=== PATIENT | male | born 1990 | race Caucasian/White ===

== ENCOUNTER 2016-07-19 11:34 | Emergency (ER) | payer BC ==
[~2016-07-19] VITALS: Ht 177.8 cm; Wt 73.3 kg
[2016-07-19 11:43] VITALS: BP 133/89; PULSE 103; RESP 16; TEMP 98.7; O2SAT 99
[2016-07-19] MEDS ORDERED: SODIUM CHLOR 0.9% 1000 ML INJ 1,000 ML IV SCH (13:49)
--- NOTE | 2016-07-19 13:52 | PD ---
HPI Chief Complaint: Abdominal Pain Time Seen by Provider: 13:51 Travel History International Travel<30 days: No Contact w/Intl Traveler<30days: No Traveled to known affect area: No History of Present Illness HPI 25-year-old male presents to the emergency department for evaluation of abdominal pain and bilateral flank pain that started yesterday. Patient states that his primary care physician diagnosed him with sinusitis and bronchitis on July 14, 2016. He was given prescription for prednisone and clarithromycin. He states he started bilateral flank pain and abdominal pain yesterday. He states he has had chills, but no fevers. He reports nausea, but no vomiting. He denies any previous abdominal surgeries. He states he has had this problem before, but he was in [place] at the time is unsure what the problem was. Patient denies any history of nephrolithiasis. He denies any penile discharge or testicular pain or swelling. He reports no chronic medical problems. He takes no other medications. PFSH Past Medical History Hx Anticoagulant Therapy: Yes (asa 81mg) Social History Alcohol Use: No Tobacco Use: No Substance Use: No Allergies-Medications (Allergen,Severity, Reaction): Coded Allergies: No Known Allergies (Unverified , 07/19/16) Reported Meds & Prescriptions Reported Meds & Active Scripts Active Reported Clarithromycin 500 Mg Tab 500 Mg PO BID Clonazepam Odt (Clonazepam) 0.25 Mg Tab 0.25 Mg PO BID Diclofenac Sodium DR (Diclofenac Sodium) 75 Mg Tabdr 75 Mg PO BID Hyoscyamine (Hyoscyamine Sulfate) 0.125 Mg Tab 1-2 Tab PO Q4H PRN Prednisone (21) 5 mg tab Dose Pack (Prednisone) 5 Mg Dspk 5 Mg PO DIRECTED Review of Systems Except as stated in HPI: all other systems reviewed are Neg Physical Exam Narrative GENERAL: Well-developed well-nourished male patient, ambulatory. Afebrile. SKIN: Warm and dry. HEAD: Normocephalic. Atraumatic. EYES: No scleral icterus. No injection or drainage. NECK: Supple, trachea midline. No JVD or lymphadenopathy. CARDIOVASCULAR: Regular rate and rhythm without murmurs, gallops, or rubs. RESPIRATORY: Breath sounds equal bilaterally. No accessory muscle use. Lungs sounds clear to auscultation. GASTROINTESTINAL: Abdomen soft and nondistended. Patient has generalized tenderness to palpation, worse over left lower quadrant. MUSCULOSKELETAL: No cyanosis, or edema. BACK: Nontender without obvious deformity. Bilateral CVA tenderness, worse on the left. Data Data Last Documented VS Vital Signs Date Time Temp Pulse Resp B/P Pulse Ox O2 Delivery O2 Flow Rate FiO2 07/19/16 14:50 92 16 141/89 98 Room Air 07/19/16 11:43 98.7 Orders Complete Blood Count With Diff (07/19/16 13:49) Comprehensive Metabolic Panel (07/19/16 13:49) Lipase (07/19/16 13:49) Urinalysis - C+S If Indicated (07/19/16 13:49) Ct Abd/Pel W/O Iv Contrast (07/19/16 13:49) Iv Access Insert/Monitor (07/19/16 13:49) Ecg Monitoring (07/19/16 13:49) Oximetry (07/19/16 13:49) Ondansetron Inj (Zofran Inj) (07/19/16 14:00) Sodium Chlor 0.9% 1000 Ml Inj (Ns 1000 M (07/19/16 13:49) Sodium Chloride 0.9% Flush (Ns Flush) (07/19/16 14:00) Ketorolac Inj (Toradol Inj) (07/19/16 14:00) Labs Laboratory Tests Test 07/19/16 13:50 White Blood Count 6.9 TH/MM3 Red Blood Count 5.38 MIL/MM3 Hemoglobin 16.3 GM/DL Hematocrit 48.5 % Mean Corpuscular Volume 90.2 FL Mean Corpuscular Hemoglobin 30.2 PG Mean Corpuscular Hemoglobin 33.5 % Concent Red Cell Distribution Width 12.4 % Platelet Count 250 TH/MM3 Mean Platelet Volume 8.9 FL Neutrophils (%) (Auto) 58.8 % Lymphocytes (%) (Auto) 30.3 % Monocytes (%) (Auto) 8.8 % Eosinophils (%) (Auto) 1.3 % Basophils (%) (Auto) 0.8 % Neutrophils # (Auto) 4.0 TH/MM3 Lymphocytes # (Auto) 2.1 TH/MM3 Monocytes # (Auto) 0.6 TH/MM3 Eosinophils # (Auto) 0.1 TH/MM3 Basophils # (Auto) 0.1 TH/MM3 CBC Comment DIFF FINAL Differential Comment Urine Collection Type CLEAN CATCH Urine Color YELLOW Urine Turbidity CLEAR Urine pH 6.5 Urine Specific [place] 1.017 Urine Protein NEG mg/dL Urine Glucose (UA) NEG mg/dL Urine Ketones NEG mg/dL Urine Occult Blood NEG Urine Nitrite NEG Urine Bilirubin NEG Urine Leukocyte Esterase NEG Urine RBC 0-3 /hpf Microscopic Urinalysis Comment CULT NOT INDICATED Sodium Level 142 MEQ/L Potassium Level 3.6 MEQ/L Chloride Level 106 MEQ/L Carbon Dioxide Level 27.6 MEQ/L Anion Gap 8 MEQ/L Blood Urea Nitrogen 17 MG/DL Creatinine 1.00 MG/DL Estimat Glomerular Filtration 90 ML/MIN Rate Random Glucose 97 MG/DL Calcium Level 9.3 MG/DL Total Bilirubin 0.5 MG/DL Aspartate Amino Transf 26 U/L (AST/SGOT) Alanine Aminotransferase 44 U/L (ALT/SGPT) Alkaline Phosphatase 67 U/L Total Protein 8.3 GM/DL Albumin 4.4 GM/DL Lipase 141 U/L [facility] Medical Decision Making Medical Screen Exam Complete: Yes Emergency Medical Condition: Yes Medical Record Reviewed: Yes Interpretation(s) Last Impressions Abdomen/Pelvis CT 07/19/16 1349 Signed Impressions: Service Date/Time: Tuesday, July 19, 2016 14:16 - CONCLUSION: 1. No acute findings. Specifically no evidence for obstructive uropathy. Mild constipation. Papi Carpenter MD Differential Diagnosis Nephrolithiasis versus gastroenteritis versus diverticulitis Narrative Course 25-year-old male presents to the emergency department for evaluation of bilateral flank pain and abdominal pain that started yesterday. Patient does appear well on exam. CBC, CMP, lipase, UA are ordered and pending. CT of the abdomen/pelvis without contrast is ordered and pending. CBC is unremarkable. CMP is unremarkable. Lipase is 141. UA shows no evidence of infection. CT of the abdomen/pelvis shows no acute findings. Specifically no evidence for obstructive uropathy. Mild constipation. I discussed findings with the patient. He is instructed to follow-up with primary care physician. Patient states his bronchitis and sinusitis symptoms are better. I discussed with the antibiotic, clarithromycin, could be causing his GI upset. Patient is stable for discharge. The patient was discharged in stable condition with instructions, including return instructions and follow up instructions. Diagnosis Primary Impression: Abdominal pain Qualified Code: R10.84 - Generalized abdominal pain Referrals: Primary Care Physician 2 days Patient Instructions: Abdominal Pain (ED), General Instructions Additional Instructions: Follow-up with your primary care physician. Return to the emergency department for any acute worsening of symptoms. Med/Other Pt SpecificInfo: No Change to Meds Disposition: 01 DISCHARGE HOME Condition: Stable Lester Quirozakash HADDAD Jul 19, 2016 13:52
[2016-07-19] MEDS ORDERED: ONDANSETRON HCL 4 MG/2 ML VIAL IVP ONE (14:00)
[2016-07-19] MEDS ORDERED: KETOROLAC TROMETHAMINE 30 MG/ML (IVP) VIAL IVP ONE (14:00)
[2016-07-19] MEDS ORDERED: SODIUM CHLORIDE 0.9% FLUSH 5 ML FLUSH IVF PRN (14:00)
[2016-07-19 14:09] VITALS: RESP 16; O2SAT 99
[2016-07-19 14:10] VITALS: BP 141/89; PULSE 90; RESP 16; O2SAT 97
[2016-07-19 14:10] LABS: BASOPHIL # 0.1 TH/MM3 (0-0.2); BASOPHIL % 0.8 % (0.0-2.0); EOSINOPHIL # 0.1 TH/MM3 (0-0.4); EOSINOPHIL % 1.3 % (0.0-4.0); HEMATOCRIT 48.5 % (39.0-51.0); HEMO FLAGS DIFF FINAL; LYMPH % 30.3 % (9.0-44.0); LYMPHOCYTE # 2.1 TH/MM3 (1.0-4.8); MEAN CELL VOLUME 90.2 FL (80.0-100.0); MEAN CORPUSCULAR HEMOGLOBIN 30.2 PG (27.0-34.0); MEAN CORPUSCULAR HGB CONC 33.5 % (32.0-36.0); MONO % 8.8 % (0.0-8.0); NEUT % 58.8 % (16.0-70.0); PLATELET COUNT 250 TH/MM3 (150-450); RED BLOOD COUNT 5.38 MIL/MM3 (4.50-5.90); RED CELL DISTRIBUTION WIDTH 12.4 % (11.6-17.2); WHITE BLOOD COUNT 6.9 TH/MM3 (4.0-11.0)
[2016-07-19 14:11] LABS: BLOOD, URINE NEG (NEG); GLUCOSE,URINE NEG (NEG); KETONE, URINE NEG (NEG); NITRITE,URINE NEG (NEG); PH, URINE 6.5 (5.0-8.5)
[2016-07-19] MEDS ORDERED: CLON0.25 PO (14:16)
[2016-07-19] MEDS ORDERED: CLAR500T PO (14:16)
[2016-07-19] MEDS ORDERED: HYOS0.128 PO (14:16)
[2016-07-19] MEDS ORDERED: PRED5PAK PO (14:16)
[2016-07-19] MEDS ORDERED: DICL75TA PO (14:16)
[2016-07-19 14:17] LABS: METHOD OF COLLECTION CLEAN CATCH; URINE COLOR YELLOW (YELLW/STRAW)
[2016-07-19 14:18] LABS: COMMENT (UR) CULT NOT INDICATED; CULTURE IF INDICATED CULT NOT INDICATED; RBC, URINE 0-3 /hpf (0-3)
[2016-07-19 14:19] LABS: CHLORIDE 106 MEQ/L (98-107); POTASSIUM 3.6 MEQ/L (3.5-5.1); SODIUM (NA) 142 MEQ/L (136-145)
[2016-07-19 14:23] LABS: ANION GAP 8 MEQ/L (5-15); BICARBONATE 27.6 MEQ/L (21.0-32.0); BLOOD UREA NITROGEN 17 MG/DL (7-18)
[2016-07-19 14:26] LABS: ALT (GPT) 44 U/L (12-78); AST (GOT) 26 U/L (15-37); GLOMERULAR FILTRATION RATE 90 ML/MIN (>89)
[2016-07-19 14:28] LABS: TOTAL BILIRUBIN ADULT 0.5 MG/DL (0.2-1.0)
[2016-07-19 14:29] LABS: ALKALINE PHOSPHATASE 67 U/L (45-117)
[2016-07-19 14:50] VITALS: BP_SYST 136; BP_SYST 141; BP_DIAS 88; BP_DIAS 89; PULSE 92; RESP 16; O2SAT 98
--- NOTE | 2016-07-19 15:12 | RADHPO ---
EXAM DATE/TIME: 07/19/2016 14:16 [facility] COMPARISON: No previous studies available for comparison. INDICATIONS : Bilateral flank pain for two days. ORAL CONTRAST: No oral contrast ingested. RADIATION DOSE: 8.72 CTDIvol (mGy) MEDICAL HISTORY : None SURGICAL HISTORY : None. ENCOUNTER: Initial ACUITY: 2 days PAIN SCALE: 6/10 LOCATION: Bilateral flank TECHNIQUE: Volumetric scanning of the abdomen and pelvis was performed. Using automated exposure control and ad justment of the mA and/or kV according to patient size, radiation dose was kept as low as reasonably achievable to obtain optimal diagnostic quality images. FINDINGS: Lung bases are clear. No acute findings in the liver, spleen, adrenals, kidneys or pancreas. No calci fied gallstones or biliary ductal dilatation. Appendix is normal. Mild constipation. No bowel obstruc tion, free air or free fluid. CONCLUSION: 1. No acute findings. Specifically no evidence for obstructive uropathy. Mild constipation. Papi Carpenter MD on July 19, 2016 at 15:06 Board Certified Radiologist. This report was verified electronically.
[2016-07-19 15:52] VITALS: BP 138/80; PULSE 89; RESP 16; O2SAT 98
[2016-07-19 16:30] VITALS: RESP 16
== END 2016-07-19 16:37 | disposition home or self-care (01) ==
LOC: PHED 11:34
DX: R10.84 Generalized abdominal pain (principal)
CPT/HCPCS: 74176; 80053; 81001; 83690; 85025; 96361; 96374; 96375; 99284; J1885; J2405; J7030

== ENCOUNTER 2016-08-08 13:45 | Emergency (ER) | payer BC ==
[~2016-08-08] VITALS: Ht 177.8 cm; Wt 75.5 kg
[~2016-08-08 13:45] MED LIST: CLAR500T PO; CLON0.25 PO; DICL75TA PO; HYOS0.128 PO; PRED5PAK PO
[2016-08-08 13:48] VITALS: BP 132/96; PULSE 129; RESP 16; TEMP 97.6; O2SAT 93
[2016-08-08] MEDS ORDERED: SODIUM CHLOR 0.9% 1000 ML INJ 1,000 ML IV SCH (14:12)
[2016-08-08] MEDS ORDERED: SODIUM CHLORIDE 0.9% FLUSH 5 ML FLUSH IVF PRN (14:15)
--- NOTE | 2016-08-08 14:20 | PD ---
HPI Chief Complaint: General Weakness Time Seen by Provider: 14:11 Travel History International Travel<30 days: No Contact w/Intl Traveler<30days: No Traveled to known affect area: No History of Present Illness HPI 25-year-old male with history of generalized anxiety disorder for which he takes clonazepam, presents to the ER today fairly disoriented, he grabs his abdomen, states he was nauseous, and states he had a rash on his arm. His thoughts are fairly poorly organized. He states that he took his anxiety medication today. Modifying Factors: None Associated Signs & Symptoms: Altered mental status Risk Factors: Anxiety disorder, on benzodiazepine PFSH Past Medical History Hx Anticoagulant Therapy: No Cardiovascular Problems: No Chemotherapy: No Cerebrovascular Accident: No Diabetes: No Diminished Hearing: No Respiratory: No Social History Alcohol Use: No Tobacco Use: No Substance Use: No Allergies-Medications (Allergen,Severity, Reaction): Coded Allergies: No Known Allergies (Unverified , 08/08/16) Reported Meds & Prescriptions Reported Meds & Active Scripts Active Reported Clonazepam 1 Mg Tab 1 Mg PO DAILY Review of Systems ROS Limitations: Altered Mental Status Physical Exam Narrative GENERAL: Well-developed young white male patient who is in moderate distress, alert, awake, disoriented. SKIN: Warm and dry. HEAD: Atraumatic. Normocephalic. EYES: Pupils are large, equal and round. No scleral icterus. No injection or drainage. Notable for vertigo nystagmus pointing to the left. ENT: No nasal bleeding or discharge. Mucous membranes pink and moist. NECK: Trachea midline. No JVD. CARDIOVASCULAR: Regular rate and rhythm. No murmur appreciated. RESPIRATORY: No accessory muscle use. Clear to auscultation. Breath sounds equal bilaterally. GASTROINTESTINAL: Abdomen soft, non-tender, nondistended. Hepatic and splenic margins not palpable. MUSCULOSKELETAL: No obvious deformities. No clubbing. No cyanosis. No edema. NEUROLOGICAL: Awake and alert. No obvious cranial nerve deficits. Motor grossly within normal limits. Normal speech. PSYCHIATRIC: Appropriate mood and affect; insight and judgment normal. Data Data Last Documented VS Vital Signs Date Time Temp Pulse Resp B/P Pulse Ox O2 Delivery O2 Flow Rate FiO2 08/08/16 15:00 93 16 139/95 95 Room Air 08/08/16 13:48 97.6 Orders Electrocardiogram (08/08/16 14:12) Complete Blood Count With Diff (3/11/17 14:12) Comprehensive Metabolic Panel (08/08/16 14:12) Prothrombin Time / Inr (Pt) (08/08/16 14:12) Act Partial Throm Time (Ptt) (08/08/16 14:12) Ct Brain W/O Iv Contrast(Rout) (08/08/16 14:12) Blood Glucose (08/08/16 14:12) Ecg Monitoring (08/08/16 14:12) Iv Access Insert/Monitor (08/08/16 14:12) Cath For Specimen (08/08/16 14:12) Oximetry (08/08/16 14:12) Sodium Chloride 0.9% Flush (Ns Flush) (08/08/16 14:15) Sodium Chlor 0.9% 1000 Ml Inj (Ns 1000 M (08/08/16 14:12) Drug Screen, Random Urine (08/08/16 14:12) Alcohol (Ethanol) (08/08/16 14:12) Lipase (08/08/16 14:12) Labs Laboratory Tests Test 08/08/16 08/08/16 14:45 16:02 White Blood Count 6.9 TH/MM3 Red Blood Count 4.97 MIL/MM3 Hemoglobin 15.6 GM/DL Hematocrit 45.4 % Mean Corpuscular Volume 91.5 FL Mean Corpuscular Hemoglobin 31.3 PG Mean Corpuscular Hemoglobin 34.3 % Concent Red Cell Distribution Width 13.6 % Platelet Count 222 TH/MM3 Mean Platelet Volume 9.2 FL Neutrophils (%) (Auto) 68.0 % Lymphocytes (%) (Auto) 22.4 % Monocytes (%) (Auto) 8.1 % Eosinophils (%) (Auto) 1.3 % Basophils (%) (Auto) 0.2 % Neutrophils # (Auto) 4.7 TH/MM3 Lymphocytes # (Auto) 1.5 TH/MM3 Monocytes # (Auto) 0.6 TH/MM3 Eosinophils # (Auto) 0.1 TH/MM3 Basophils # (Auto) 0.0 TH/MM3 CBC Comment DIFF FINAL Differential Comment Prothrombin Time 10.6 SEC Prothromb Time International 1.0 RATIO Ratio Activated Partial 24.3 SEC Thromboplast Time Sodium Level 140 MEQ/L Potassium Level 3.6 MEQ/L Chloride Level 103 MEQ/L Carbon Dioxide Level 29.7 MEQ/L Anion Gap 7 MEQ/L Blood Urea Nitrogen 8 MG/DL Creatinine 0.94 MG/DL Estimat Glomerular Filtration 96 ML/MIN Rate Random Glucose 89 MG/DL Calcium Level 9.1 MG/DL Total Bilirubin 0.5 MG/DL Aspartate Amino Transf 35 U/L (AST/SGOT) Alanine Aminotransferase 53 U/L (ALT/SGPT) Alkaline Phosphatase 56 U/L Total Protein 7.9 GM/DL Albumin 4.6 GM/DL Lipase 114 U/L Ethyl Alcohol Level LESS THAN 3 MG/DL Urine Opiates Screen NEG Urine Barbiturates Screen NEG Urine Amphetamines Screen NEG Urine Benzodiazepines Screen NEG Urine Cocaine Screen NEG Urine Cannabinoids Screen NEG MDM Medical Decision Making Medical Screen Exam Complete: Yes Emergency Medical Condition: Yes Medical Record Reviewed: Yes Interpretation(s) Laboratory Tests Test 08/08/16 14:45 Monocytes (%) (Auto) 8.1 % (0.0-8.0) Differential Diagnosis Altered mental statussubstance induced versus acute intracranial issues versus metabolic issues versus intoxicants Narrative Course CT of the brain is unremarkable. Lab work did not indicate any significant metabolic issues. His urine toxicology screen is negative. Patient admits to having taken his clonazepam today. I suspect that the symptoms are secondary to the medication. On reevaluation at 4:30 PM, patient is improving but still mildly disoriented. At this point, my plan would be to let him sleep it off. And to release once medication has worked his way out of his system. Return for any worsening in symptoms as necessary. On reevaluation at 5:30 PM, he is awake, alert, oriented 3, now able to speak normally, and appears to be doing better. My plan at this point would be to release him with follow-up to primary care physician. He states he is not sure what happened, states that he is not sure whether he took more than his usual dose of medications. Diagnosis Primary Impression: Altered mental status Disposition: 01 DISCHARGE HOME Condition: Stable Scot Rice MD Aug 08, 2016 14:20
[2016-08-08 14:30] VITALS: RESP 16; O2SAT 98
[2016-08-08] MEDS ORDERED: CLON1TAB OTHER (14:58)
[2016-08-08 15:00] VITALS: BP 139/95; PULSE 93; RESP 16; O2SAT 95
[2016-08-08 15:28] LABS: AUTOMATED NEUTROPHIL # 4.7 TH/MM3 (1.8-7.7); BASOPHIL % 0.2 % (0.0-2.0); EOSINOPHIL # 0.1 TH/MM3 (0-0.4); EOSINOPHIL % 1.3 % (0.0-4.0); HEMATOCRIT 45.4 % (39.0-51.0); HEMO FLAGS DIFF FINAL; LYMPH % 22.4 % (9.0-44.0); LYMPHOCYTE # 1.5 TH/MM3 (1.0-4.8); MEAN CELL VOLUME 91.5 FL (80.0-100.0); MEAN CORPUSCULAR HEMOGLOBIN 31.3 PG (27.0-34.0); MEAN CORPUSCULAR HGB CONC 34.3 % (32.0-36.0); MONO % 8.1 % (0.0-8.0); PLATELET COUNT 222 TH/MM3 (150-450); RED BLOOD COUNT 4.97 MIL/MM3 (4.50-5.90); RED CELL DISTRIBUTION WIDTH 13.6 % (11.6-17.2); WHITE BLOOD COUNT 6.9 TH/MM3 (4.0-11.0)
[2016-08-08 15:38] LABS: APTT (PATIENT) 24.3 SEC (24.3-30.1); PROTHROMBIN TIME - PATIENT 10.6 SEC (9.8-11.6)
--- NOTE | 2016-08-08 15:46 | RADRPT ---
EXAM DATE/TIME: 08/08/2016 15:31 [facility] COMPARISON: No previous studies available for comparison. INDICATIONS : Disoriented today. RADIATION DOSE: 56.36 CTDIvol (mGy) MEDICAL HISTORY : None SURGICAL HISTORY : None. ENCOUNTER: Initial ACUITY: 1 day PAIN SCALE: 0/10 LOCATION: cranial TECHNIQUE: Multiple contiguous axial images were obtained of the head. Using automated exposure control and adj ustment of the mA and/or kV according to patient size, radiation dose was kept as low as reasonably a chievable to obtain optimal diagnostic quality images. FINDINGS: CEREBRUM: The ventricles are normal for age. No evidence of midline shift, mass lesion, hemorrhage or acute in farction. No extra-axial fluid collections are seen. POSTERIOR FOSSA: The cerebellum and brainstem are intact. The 4th ventricle is midline. The cerebellopontine angle i s unremarkable. EXTRACRANIAL: The visualized portion of the orbits is intact. SKULL: The calvaria is intact. No evidence of skull fracture. CONCLUSION: Negative noncontrast head CT. Scott Blood MD on August 08, 2016 at 15:44 Board Certified Radiologist. This report was verified electronically.
[2016-08-08 16:09] LABS: ALT (GPT) 53 U/L (12-78); ANION GAP 7 MEQ/L (5-15); AST (GOT) 35 U/L (15-37); BICARBONATE 29.7 MEQ/L (21.0-32.0); BLOOD UREA NITROGEN 8 MG/DL (7-18); CHLORIDE 103 MEQ/L (98-107); GLOMERULAR FILTRATION RATE 96 ML/MIN (>89); POTASSIUM 3.6 MEQ/L (3.5-5.1); SODIUM (NA) 140 MEQ/L (136-145)
[2016-08-08 16:11] LABS: ALKALINE PHOSPHATASE 56 U/L (45-117); TOTAL BILIRUBIN ADULT 0.5 MG/DL (0.2-1.0)
[2016-08-08 16:26] LABS: AMPHETAMINE, URINE NEG (NEG); BARBITURATES, URINE NEG (NEG); COCAINE, URINE NEG (NEG)
--- NOTE | 2016-08-10 07:15 | EKG ---
Date Performed: 08/08/2016 Time Performed: 15:24:20 PTAGE: 25 years EKG: Sinus rhythm WITH SINUS ARRHYTHMIA INCOMPLETE RIGHT BUNDLE BRANCH BLOCK BORDERLINE ECG NO PREVIOUS TRACING DOCTOR: Giacomo Cervantes Interpretating Date/Time 08/10/2016 07:13:48
== END 2016-08-08 19:09 | disposition home or self-care (01) ==
LOC: NEPC 13:45
DX: R41.82 Altered mental status, unspecified (principal); I49.8 Other specified cardiac arrhythmias; I45.10 Unspecified right bundle-branch block; R11.0 Nausea; R21 Rash and other nonspecific skin eruption
CPT/HCPCS: 70450; 80053; 80307; 83690; 85025; 85610; 85730; 93005; 96360; 96361; 99285; J7030; P9612

== ENCOUNTER 2016-08-09 13:36 | Observation (INO) | payer BC ==
[~2016-08-09] VITALS: Ht 172.7 cm; Wt 76.0 kg
[~2016-08-09 13:36] MED LIST changes: -CLAR500T PO; -CLON0.25 PO; +CLON1TAB OTHER; -DICL75TA PO; -HYOS0.128 PO; -PRED5PAK PO
[2016-08-09 13:43] VITALS: BP 164/90; PULSE 122; RESP 20; TEMP 99.2; O2SAT 99
[2016-08-09] MEDS ORDERED: SODIUM CHLOR 0.9% 1000 ML INJ 1,000 ML IV SCH (13:50)
--- NOTE | 2016-08-09 13:56 | PD ---
HPI Chief Complaint: Altered Mental Status Time Seen by Provider: 13:45 Travel History International Travel<30 days: No Contact w/Intl Traveler<30days: No Traveled to known affect area: No History of Present Illness HPI 25-year-old male presents via EMS for evaluation of altered mental status. He reports that someone named Greg gave him the drugs PCP and DMT [place] today and he took them. He has no acute complaints at this time. He says that Greg is going to alf. He is alert to place but he does not appear to know if his name is. History limited by altered mental status. Per chart review the patient was seen here yesterday with a similar presentation. He was monitored for several hours and upon discharge she was found to be awake and alert and oriented and acting more normal. Per chart review he appears to have a history of generalized anxiety disorder for which he takes clonazepam. PFSH Past Medical History Hx Anticoagulant Therapy: No Cardiovascular Problems: No Chemotherapy: No Cerebrovascular Accident: No Diabetes: No Diminished Hearing: No Respiratory: No Social History Alcohol Use: No Tobacco Use: No Substance Use: Yes Allergies-Medications (Allergen,Severity, Reaction): Coded Allergies: No Known Allergies (Unverified , 08/08/16) Reported Meds & Prescriptions Reported Meds & Active Scripts Active Reported Clonazepam 1 Mg Tab 1 Mg PO DAILY Review of Systems ROS Limitations: Altered Mental Status Except as stated in HPI: all other systems reviewed are Neg Physical Exam Exam Limitations: Altered Mental Status Narrative GENERAL: Well-developed well-nourished male who is in no acute distress. SKIN: Warm and dry. HEAD: Atraumatic. Normocephalic. EYES: Pupils equal and round. No scleral icterus. No injection or drainage. ENT: No nasal bleeding or discharge. Mucous membranes pink and moist. NECK: Trachea midline. No JVD. CARDIOVASCULAR: Regular rate and rhythm. No murmur appreciated. RESPIRATORY: No accessory muscle use. Clear to auscultation. Breath sounds equal bilaterally. GASTROINTESTINAL: Abdomen soft, non-tender, nondistended. Hepatic and splenic margins not palpable. MUSCULOSKELETAL: No obvious deformities. No clubbing. No cyanosis. No edema. NEUROLOGICAL: Awake and alert. No obvious cranial nerve deficits. Motor grossly within normal limits. Normal speech. He is alert to place but not his name. He thinks his name is Scott Tony. He responds to commands appropriately. PSYCHIATRIC: Insight and judgment are limited by ingested substance. Anxious appearance. Data Data Last Documented VS Vital Signs Date Time Temp Pulse Resp B/P Pulse Ox O2 Delivery O2 Flow Rate FiO2 08/09/16 13:43 99.2 122 20 164/90 99 Orders Electrocardiogram (08/09/16 13:47) Ammonia (08/09/16 13:50) Complete Blood Count With Diff (08/09/16 13:50) Comprehensive Metabolic Panel (08/09/16 13:50) Creatine Kinase (Cpk) (08/09/16 13:50) Iv Access Insert/Monitor (08/09/16 13:50) Sodium Chlor 0.9% 1000 Ml Inj (Ns 1000 M (08/09/16 13:50) Alcohol (Ethanol) (08/09/16 13:50) Salicylates (Aspirin) (08/09/16 13:50) Tylenol (Acetaminophen) (08/09/16 13:50) CKMB (08/09/16 14:01) CKMB% (08/09/16 14:01) Ob/Psych Drug Screen, Urine (08/09/16 14:49) Ur Bath Salts (08/09/16 15:14) Ur Heroin (08/09/16 15:14) Ur K2 Spice (08/09/16 15:14) Ur Ecstasy (08/09/16 15:14) Ur Methadone (08/09/16 15:14) Phencyclidine Urine (Pcp) (08/09/16 15:14) Lorazepam Inj (Ativan Inj) (08/09/16 18:17) ^ Sitter (08/09/16 18:38) Lorazepam Inj (Ativan Inj) (08/09/16 18:45) Restraints Non-Violent KATHERIN.Q3H (08/09/16 18:44) Labs Laboratory Tests Test 08/09/16 08/09/16 14:01 15:14 White Blood Count 5.6 TH/MM3 Red Blood Count 4.68 MIL/MM3 Hemoglobin 14.7 GM/DL Hematocrit 42.7 % Mean Corpuscular Volume 91.2 FL Mean Corpuscular Hemoglobin 31.4 PG Mean Corpuscular Hemoglobin 34.4 % Concent Red Cell Distribution Width 13.8 % Platelet Count 218 TH/MM3 Mean Platelet Volume 8.9 FL Neutrophils (%) (Auto) 54.0 % Lymphocytes (%) (Auto) 33.7 % Monocytes (%) (Auto) 9.4 % Eosinophils (%) (Auto) 2.7 % Basophils (%) (Auto) 0.2 % Neutrophils # (Auto) 3.0 TH/MM3 Lymphocytes # (Auto) 1.9 TH/MM3 Monocytes # (Auto) 0.5 TH/MM3 Eosinophils # (Auto) 0.1 TH/MM3 Basophils # (Auto) 0.0 TH/MM3 CBC Comment DIFF FINAL Differential Comment Sodium Level 142 MEQ/L Potassium Level 3.8 MEQ/L Chloride Level 107 MEQ/L Carbon Dioxide Level 26.3 MEQ/L Anion Gap 9 MEQ/L Blood Urea Nitrogen 14 MG/DL Creatinine 1.00 MG/DL Estimat Glomerular Filtration 90 ML/MIN Rate Random Glucose 87 MG/DL Calcium Level 8.3 MG/DL Total Bilirubin 0.4 MG/DL Aspartate Amino Transf 34 U/L (AST/SGOT) Alanine Aminotransferase 47 U/L (ALT/SGPT) Alkaline Phosphatase 52 U/L Ammonia 15 MCMOL/L Total Creatine Kinase 455 U/L Creatine Kinase MB 1.5 NG/ML Creatine Kinase MB % 0.3 % Total Protein 7.2 GM/DL Albumin 4.1 GM/DL Salicylates Level LESS THAN 1.7 MG/DL Acetaminophen Level LESS THAN 2.0 MCG/ML Ethyl Alcohol Level LESS THAN 3 MG/DL Urine Opiates Screen NEG Urine Barbiturates Screen NEG Urine Amphetamines Screen NEG Urine Benzodiazepines Screen NEG Urine Cocaine Screen NEG Urine Cannabinoids Screen NEG MDM Medical Decision Making Medical Screen Exam Complete: Yes Emergency Medical Condition: Yes Medical Record Reviewed: Yes Interpretation(s) EKG sinus tachycardia, heart rate 108 CBC unremarkable CMP unremarkable Total CK 455 Told toxicology screen pending Tylenol and salicylates negative A call screen negative Differential Diagnosis Substance-induced disorder, acute psychosis, meningitis, encephalitis, drug overdose, schizophrenia Narrative Course 25-year-old male presents for evaluation of altered mental status. He reports that he took the drugs dmt and pcp today. He was seen here yesterday with a similar presentation and had an essentially normal workup. He was monitored for several hours and eventually discharge in his normal state of mind. Place is for basic lab work, drug screen at this time. He'll be given IV fluids and monitored very closely. The patient's lab work is been repeated. Total CK elevated otherwise unremarkable. Total toxicology screen is pending. He reports that he works at [employer]. Today he was upset because a girl that he was speaking to on [place] is not interested in him and he decided to get high with drugs. He denies any suicidal or homicidal ideation. Patient has been monitored for several hours. He became increasingly agitated and required soft restraints as well as Ativan. Therefore the patient will be admitted for observation for altered mental status. Discussed with Dr. Garza who is agreeable with admission for observation. Procedures EKG Prior to Arrival: Yes Diagnosis Primary Impression: Substance induced mood disorder Additional Impression: Altered mental status Qualified Code: R41.82 - Altered mental status, unspecified altered mental status type Admitting Information Admitting Physician Requests: Observation Franck Roque Aug 09, 2016 13:56 Franck Roque Aug 09, 2016 13:56
[2016-08-09 14:15] LABS: BASOPHIL % 0.2 % (0.0-2.0); EOSINOPHIL # 0.1 TH/MM3 (0-0.4); EOSINOPHIL % 2.7 % (0.0-4.0); HEMATOCRIT 42.7 % (39.0-51.0); HEMO FLAGS DIFF FINAL; LYMPH % 33.7 % (9.0-44.0); LYMPHOCYTE # 1.9 TH/MM3 (1.0-4.8); MEAN CELL VOLUME 91.2 FL (80.0-100.0); MEAN CORPUSCULAR HEMOGLOBIN 31.4 PG (27.0-34.0); MEAN CORPUSCULAR HGB CONC 34.4 % (32.0-36.0); MONO % 9.4 % (0.0-8.0); PLATELET COUNT 218 TH/MM3 (150-450); RED BLOOD COUNT 4.68 MIL/MM3 (4.50-5.90); RED CELL DISTRIBUTION WIDTH 13.8 % (11.6-17.2); WHITE BLOOD COUNT 5.6 TH/MM3 (4.0-11.0)
[2016-08-09 14:30] LABS: ALT (GPT) 47 U/L (12-78); ANION GAP 9 MEQ/L (5-15); AST (GOT) 34 U/L (15-37); BICARBONATE 26.3 MEQ/L (21.0-32.0); BLOOD UREA NITROGEN 14 MG/DL (7-18); CHLORIDE 107 MEQ/L (98-107); GLOMERULAR FILTRATION RATE 90 ML/MIN (>89); POTASSIUM 3.8 MEQ/L (3.5-5.1); SODIUM (NA) 142 MEQ/L (136-145)
[2016-08-09 14:32] LABS: ACETAMINOPHEN LESS THAN 2.0 MCG/ML (10.0-30.0); ALKALINE PHOSPHATASE 52 U/L (45-117); CREATINE KINASE 455 U/L (39-308); TOTAL BILIRUBIN ADULT 0.4 MG/DL (0.2-1.0)
[2016-08-09 14:50] LABS: CKMB 1.5 NG/ML (0.5-3.6)
[2016-08-09 15:48] LABS: AMPHETAMINE, URINE NEG (NEG); BARBITURATES, URINE NEG (NEG); COCAINE, URINE NEG (NEG)
[2016-08-09] MEDS ORDERED: LORazepam 2 MG/ML VIAL ONE (18:17)
[2016-08-09] MEDS ORDERED: LORazepam 2 MG/ML VIAL IV PUSH ONE (18:45)
--- NOTE | 2016-08-09 19:39 | HHI.HP ---
[facility] Service [facility] Primary Care Physician Michael Nova MD Admission Diagnosis altered mental status, substance-induced disorder Diagnoses: (1) Substance induced mood disorder (2) Encephalopathy Chief Complaint: Altered mental status Travel History International Travel<30 Days: No Contact w/Intl Traveler <30 Da: No Traveled to Known Affected Are: No History of Present Illness Mr. Davila is a 25-year-old male who presented to the emergency room 08/09/2016 for evaluation of altered mental status. The patient is noncooperative with physical exam and history during my visit and, therefore, history is taken from review records. The patient told the emergency room physician's assistant women's tennis coach that he took PCP and DMT today. He has a history of generalized anxiety disorder and takes Klonopin according to the medical records. He presented on 08/08/2016 with similar complaints. Urine toxicology was negative. Head CT performed was also negative. Today, CBC is unremarkable as are electrolytes. CK was noted to be mildly elevated at 455. Expanded toxicology screen- thus far negative for opiates, barbiturates, amphetamines, benzodiazepines, cocaine, and cannabis. Blood alcohol less than 3, salicylates less than 1.7 and acetaminophen less than 2. . Review of Systems ROS Limitations: Uncooperative (unable to obtain ROS given patient's lack of cooperation) Past Family Social History Past Medical History Generalized anxiety disorder per review of medical records . Past Surgical History Unable to obtain but per medical records, none. . Reported Medications Per EMR: Reported Meds & Active Scripts Active Reported Clonazepam 1 Mg Tab 1 Mg PO DAILY . Allergies: Coded Allergies: No Known Allergies (Unverified , 08/08/16) Active Ordered Medications Current Medications Sodium Chloride (NS 1000 ml Inj) 1,000 ml @ 1,000 mls/hr Q1H IV Last administered on 08/09/16t 14:20; Start 08/09/16 at 13:50; Stop 08/09/16 at 14:49 ; Status DC Lorazepam (Ativan Inj) 2 mg STK-MED ONCE .ROUTE ; Start 08/09/16 at 18:17; Stop 08/09/16 at 18:18; Status DC Lorazepam (Ativan Inj) 1 mg ONCE ONCE IV PUSH Last administered on 08/09/16t 19:14; Start 08/09/16 at 18:45; Stop 08/09/16 at 18:46; Status DC IV Flush (NS Flush) 2 ml UNSCH PRN FLUSH FLUSH AFTER USING IV ACCESS; Start 05/16 at 19:45 IV Flush (NS Flush) 2 ml BID FLUSH ; Start 08/09/16 at 21:00 Acetaminophen (Tylenol) 650 mg Q4H PRN PO TEMP > 100.4; Start 08/09/16 at 19:45 Ondansetron HCl (Zofran Inj) 4 mg Q6H PRN IVP NAUSEA OR VOMITING; Start at 19:45 Naloxone HCl (Narcan Inj) 0.4 mg UNSCH PRN IV SEE LABEL COMMENTS; Start at 19:45 Family History Unable to obtain - patient uncooperative . Social History Unable to obtain but per medical records patient does abuse psychoactive substances . Physical Exam Vital Signs Vital Signs Date Time Temp Pulse Resp B/P Pulse Ox O2 Delivery O2 Flow Rate FiO2 08/09/16 13:43 99.2 122 20 164/90 99 Physical Exam GENERAL: This is a well-nourished, well-developed patient, in no apparent distress. Keeps eyes closed through most of visit. Initially greeted me when I came into the room. SKIN: No rashes, ecchymoses or lesions. Cool and dry. HEAD: Atraumatic. Normocephalic. EYES: Pupils dilated but reactive; Patient attempts to keep eyes for exam. No scleral icterus. No injection or drainage. ENT: Nose without bleeding, purulent drainage. NECK: Trachea midline. No JVD or lymphadenopathy. CARDIOVASCULAR: Regular rate and rhythm without murmurs, gallops, or rubs. RESPIRATORY: Clear to auscultation. Breath sounds equal bilaterally. No wheezes , rales, or rhonchi. GASTROINTESTINAL: Abdomen soft, non-tender, nondistended. No guarding. MUSCULOSKELETAL: Extremities without clubbing, cyanosis, or edema. No calf tenderness. NEUROLOGICAL: Awake initially, greets me, and then keeps eyes closed and does not answer any questions. Normal speech. . Laboratory Laboratory Tests Test 08/09/16 08/09/16 14:01 15:14 White Blood Count 5.6 Red Blood Count 4.68 Hemoglobin 14.7 Hematocrit 42.7 Mean Corpuscular Volume 91.2 Mean Corpuscular Hemoglobin 31.4 Mean Corpuscular Hemoglobin 34.4 Concent Red Cell Distribution Width 13.8 Platelet Count 218 Mean Platelet Volume 8.9 Neutrophils (%) (Auto) 54.0 Lymphocytes (%) (Auto) 33.7 Monocytes (%) (Auto) 9.4 Eosinophils (%) (Auto) 2.7 Basophils (%) (Auto) 0.2 Neutrophils # (Auto) 3.0 Lymphocytes # (Auto) 1.9 Monocytes # (Auto) 0.5 Eosinophils # (Auto) 0.1 Basophils # (Auto) 0.0 CBC Comment DIFF FINAL Differential Comment Sodium Level 142 Potassium Level 3.8 Chloride Level 107 Carbon Dioxide Level 26.3 Anion Gap 9 Blood Urea Nitrogen 14 Creatinine 1.00 Estimat Glomerular Filtration 90 Rate Random Glucose 87 Calcium Level 8.3 Total Bilirubin 0.4 Aspartate Amino Transf 34 (AST/SGOT) Alanine Aminotransferase 47 (ALT/SGPT) Alkaline Phosphatase 52 Ammonia 15 Total Creatine Kinase 455 Creatine Kinase MB 1.5 Creatine Kinase MB % 0.3 Total Protein 7.2 Albumin 4.1 Salicylates Level LESS THAN 1.7 Acetaminophen Level LESS THAN 2.0 Ethyl Alcohol Level LESS THAN 3 Urine Opiates Screen NEG Urine Barbiturates Screen NEG Urine Amphetamines Screen NEG Urine Benzodiazepines Screen NEG Urine Cocaine Screen NEG Urine Cannabinoids Screen NEG Result Diagram: 08/09/16 1401 08/09/16 1401 Assessment and Plan Problem List: (1) Substance induced mood disorder ICD Code: F19.94 Status: Acute (2) Encephalopathy ICD Code: G93.40 Status: Acute Assessment and Plan Encephalopathy - toxic vs metabolic Substance Induced Mood Disorder - Expanded toxicology screen- as far negative for opiates, barbiturates, amphetamines, benzodiazepines, cocaine, and cannabis- await results from full panel - Blood alcohol less than 3, salicylates less than 1.7 and acetaminophen less than 2. - IV fluid hydration with normal saline 125 cc per hour - Neuro checks every 4 hours - Seizure precautions - Vital signs every 4 hours - Continuous cardiac telemetry Elevated creatinine kinase - IV fluid hydration - Recheck levels in a.m.; follow trends DVT prophylaxis - SCDs Written by Ame Guzman, acting as scribe for Dr. Garza on 08/09/16 at 19: 39. All or portions of this note were transcribed by scribe BOO Romero. I, Dr. Blayne Garza personally performed the history, physical exam, and medical decision making; and confirmed the accuracy of the information in the transcribed note. Authenticated by Dr. Blayne Garza on 08/09/16 at 22:15. Discussed Condition With ER physician, RN . Ame Guzman Aug 09, 2016 19:39 Blayne Garza MD Aug 09, 2016 22:16
[2016-08-09] MEDS ORDERED: NALOXONE HCL 0.4 MG/ML AMP IV PRN (19:45)
[2016-08-09] MEDS ORDERED: ACETAMINOPHEN 325 MG TAB PO PRN (19:45)
[2016-08-09] MEDS ORDERED: SODIUM CHLORIDE 0.9% FLUSH 5 ML FLUSH FLUSH PRN (19:45)
[2016-08-09] MEDS ORDERED: ONDANSETRON HCL 4 MG/2 ML VIAL IVP PRN (19:45)
[2016-08-09 20:45] VITALS: BP 133/84; PULSE 86; RESP 15; O2SAT 96
[2016-08-09] MEDS: SODIUM CHLORIDE 0.9% FLUSH 5 ML FLUSH FLUSH SCH (21:00)
[2016-08-09] MEDS: SODIUM CHLOR 0.9% 1000 ML INJ 1,000 ML IV SCH (21:14)
[2016-08-10] VITALS (9 sets, daily range): BP systolic 121–146; BP diastolic 73–94; PULSE 70–142; RESP 15–21; TEMP 98–99; O2SAT 94–97
[2016-08-10] MEDS: SODIUM CHLOR 0.9% 1000 ML INJ 1,000 ML IV SCH ×3 (05:00→20:32)
[2016-08-10 05:39] LABS: BICARBONATE 24.6 MEQ/L (21.0-32.0); POTASSIUM 3.9 MEQ/L (3.5-5.1)
[2016-08-10] MEDS: SODIUM CHLORIDE 0.9% FLUSH 5 ML FLUSH FLUSH SCH ×2 (09:00→20:32)
--- NOTE | 2016-08-10 14:56 | EKG ---
Date Performed: 08/09/2016 Time Performed: 13:50:56 PTAGE: 25 years EKG: SINUS TACHYCARDIA WITH SHORT AR INTERVAL INCOMPLETE RIGHT BUNDLE BRANCH BLOCK ABNORMAL RHYT ECG Compared to prior tracing no significant change PREVIOUS TRACING : 08/08/2016 15.24 DOCTOR: Francisca Albrecht Interpretating Date/Time 08/10/2016 14:50:25
--- NOTE | 2016-08-10 15:41 | HHI.PR ---
Vitals/Results Vital Signs Vital Signs Date Time Temp Pulse Resp B/P Pulse Ox O2 Delivery O2 Flow Rate FiO2 08/10/16 15:06 95 08/10/16 13:04 95 21 08/10/16 11:21 99.0 103 20 137/81 95 08/10/16 07:43 98.5 88 20 146/80 94 08/10/16 04:32 98.4 98 18 121/73 97 08/10/16 03:15 70 08/10/16 00:45 83 15 138/78 96 Room Air 08/09/16 20:45 86 15 133/84 96 Room Air CBC/BMP: 08/09/16 1401 08/10/16 0445 Lab Results Laboratory Tests Test 08/10/16 04:45 Sodium Level 142 MEQ/L Potassium Level 3.9 MEQ/L Chloride Level 108 MEQ/L Carbon Dioxide Level 24.6 MEQ/L Anion Gap 9 MEQ/L Blood Urea Nitrogen 9 MG/DL Creatinine 0.98 MG/DL Estimat Glomerular Filtration 92 ML/MIN Rate Random Glucose 92 MG/DL Calcium Level 8.4 MG/DL Total Creatine Kinase 307 U/L Assessment/Plan Problem List: (1) Substance induced mood disorder (2) Encephalopathy Denis Fisher MD Aug 10, 2016 15:41
[2016-08-10] MEDS ORDERED: HALOPERIDOL LACTATE 5 MG/ML AMP IM PRN (15:45)
[2016-08-10] MEDS ORDERED: LORazepam 2 MG/ML VIAL IV PUSH PRN (15:45)
--- NOTE | 2016-08-10 15:45 | HHI.PR ---
Subjective Remarks Talking incoherently and randomly, change in altered mental status Tachycardic Skin warm Wrist restraints on No family present Objective Objective Results - Vital Signs Date Time Temp Pulse Resp B/P Pulse Ox O2 Delivery O2 Flow Rate FiO2 08/10/16 15:06 95 08/10/16 13:04 95 21 08/10/16 11:21 99.0 103 20 137/81 95 08/10/16 07:43 98.5 88 20 146/80 94 08/10/16 04:32 98.4 98 18 121/73 97 08/10/16 03:15 70 08/10/16 00:45 83 15 138/78 96 Room Air 08/09/16 20:45 86 15 133/84 96 Room Air Result Diagram: 08/09/16 1401 08/10/16 0445 Medications and IVs Active Medications Acetaminophen (Tylenol) 650 mg Q4H PRN PO; Start 08/09/16 at 19:45 IV Flush (NS Flush) 2 ml BID FLUSH; Start 08/09/16 at 21:00 IV Flush (NS Flush) 2 ml UNSCH PRN FLUSH; Start 08/09/16 at 19:45 Lorazepam (Ativan Inj) 1 mg ONCE ONCE IV PUSH Last administered on 08/09/16 19 :14; Admin Dose 1 MG; Start 08/09/16 at 18:45; Stop 08/09/16 at 18:46; Status DC Lorazepam (Ativan Inj) 2 mg STK-MED ONCE .ROUTE; Start 08/09/16 at 18:17; Stop 08/09/16 at 18:18; Status DC Naloxone HCl 0.4 mg 0.4 mg UNSCH PRN IV; Start 08/09/16 at 19:45 Ondansetron HCl (Zofran Inj) 4 mg Q6H PRN IVP; Start 08/09/16 at 19:45 Sodium Chloride (NS 1000 ml Inj) 1,000 ml @ 125 mls/hr Q8H IV Last administered on 08/10/16 13:35; Admin Dose 125 MLS/HR; Start 08/09/16 at 21:00 ROS General: Other (unable to obtain appropriate ROS due to altered mental status) Cardiac: Other (tachycardia sinus tach) Neuro/MS: Confusion, Other (delirium) Physical Exam Physical Exam PHYSICAL EXAMINATION GENERAL: This is a well-developed, well-nourished male in acute delirium. He is awake and soft wrist restraints on HEAD: Normocephalic without any lesion or mass noted. Facial features appear symmetric. OROPHARYNGEAL: Oropharynx without erythema or edema. NECK: Supple. No nuchal rigidity or lymphadenopathy. Trachea midline without deviation. CARDIAC: Regular rhythm, regular rate, tachycardia LUNGS: Clear to auscultation bilaterally. No wheeze, tachypnea and mild ABDOMEN: Soft, nontender EXTREMITIES: No edema. Pulses equal bilateral. NEUROLOGICAL: Talking randomly about whatever comes in his mind. Delirium SKIN:Warm and moist A/P Assessment and Plan Probable drug-induced delirium, with possible withdrawals Tachycardia Tachypnea Patient had an acute onset of tachycardia with delirium. Soft wrist restraints on. Psych consult requested . Tachypnea seems to be secondary to tachycardia Tachycardia secondary to delirium. Will monitor and discuss plan of care with psychiatry Dr. Fisher present, seen on his behalf Cecilia Rosen Aug 10, 2016 15:45
[2016-08-10] MEDS ORDERED: INVE1.5T PO (17:12)
[2016-08-10] MEDS ORDERED: PILL SPLITTER OTHER PRN (18:00)
[2016-08-10] MEDS: clonazePAM 0.5 MG TAB PO SCH ×2 (18:38→20:31)
[2016-08-11 01:31] VITALS: BP 122/76; PULSE 85; RESP 18; TEMP 98.4; O2SAT 98
[2016-08-11 04:34] VITALS: BP 130/78; PULSE 84; RESP 18; TEMP 98.3; O2SAT 98
[2016-08-11] MEDS: SODIUM CHLOR 0.9% 1000 ML INJ 1,000 ML IV SCH ×2 (04:45→13:00)
[2016-08-11 07:36] VITALS: BP 133/82; PULSE 78; RESP 18; TEMP 96.6; O2SAT 95
--- NOTE | 2016-08-11 08:48 | HHI.PR ---
Subjective History of Present Illness pt appears confused psychotic hallucinating less agitated no N/V No fever or chills No CP or SOB resting in bed Vitals/Results Vital Signs Vital Signs Date Time Temp Pulse Resp B/P Pulse Ox O2 Delivery O2 Flow Rate FiO2 08/11/16 07:36 96.6 78 18 133/82 95 08/11/16 04:34 98.3 84 18 130/78 98 08/11/16 01:31 98.4 85 18 122/76 98 08/10/16 21:04 98.1 78 18 133/78 96 08/10/16 20:00 21 08/10/16 15:54 98.0 142 21 137/94 97 08/10/16 15:06 95 08/10/16 13:04 95 21 08/10/16 11:21 99.0 103 20 137/81 95 CBC/BMP: 08/09/16 1401 08/10/16 0445 Physical Exam General General Appearance: No Acute Distress, Comfortable Eyes Eye Exam: Pupils Equal, Sclera White Ears & Nose Ears & Nose Exam: Nasal Mucosa [place] Throat Throat Exam: Oral Mucosa [place] & Moist Neck Neck Exam: Neck Supple, Trachea Midline Pulmonary Resp Exam: Clear Bilaterally, Breath Sounds Equal Cardiology CV Exam: Regular, Normal Sinus Rhythm Gastrointestinal/Abdomen GI Exam: Soft, Non-Tender, Bowel Sounds Present Integumentary Skin Exam: Warm, Dry Extremeties Extremities Exam: No Edema, Pedal Pulses Palpable Neurologic Neuro Exam: Alert, Awake, Moving All Extremities Assessment/Plan Problem List: (1) Substance induced mood disorder (2) Encephalopathy Assessment/Plan Hx Schizophrenia ? Compliance w medication Psychosis/ agitation PLAN Resume Invega Clonazepam psych consult awaited pt needs to be transferred to psych [facility] to better control his psychosis d/c RN cont current tx encourage po intake will f/u Addendum 12.44 RN called me , Psych came they have Schneider acted him / rec psych tx medically stable to tx to psych Denis Fisher MD Aug 11, 2016 08:48
[2016-08-11] MEDS: SODIUM CHLORIDE 0.9% FLUSH 5 ML FLUSH FLUSH SCH (09:00)
[2016-08-11] MEDS ORDERED: INVEGA 1.5 MG PO SCH (09:00)
[2016-08-11] MEDS: clonazePAM 0.5 MG TAB PO SCH ×2 (09:05→14:40)
[2016-08-11 12:16] VITALS: BP 130/79; PULSE 78; RESP 18; TEMP 95.6; O2SAT 95
--- NOTE | 2016-08-11 14:49 | PD.CONS ---
Provisional Diagnosis Admission Date Aug 09, 2016 at 19:17 [place] I. Unspecified psychosis, r/o substance-induced psychosis, R/o schizophrenia, acute exacerbation [place] II. Deferred [place] III. No medical history [place] IV. History of noncompliance with psychotropics [place] V. 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 Javed in [place], he does not have any significant medical history, who came to the ER due to altered mental status and not feeling himself. As per initial ER assessment "Mr. Davila is a 25-year-old male who presented to the emergency room 08/09/2016 for evaluation of altered mental status. The patient is noncooperative with physical exam and history during my visit and, therefore, history is taken from review records. The patient told the emergency room physician's assistant dean of students that he took PCP and DMT today. He has a history of generalized anxiety disorder and takes Klonopin according to the medical records. He presented on 08/08/2016 with similar complaints. Urine toxicology was negative. Head CT performed was also negative.Today, CBC is unremarkable as are electrolytes. CK was noted to be mildly elevated at 455. Expanded toxicology screen- thus far negative for opiates, barbiturates, amphetamines, benzodiazepines, cocaine, and cannabis. Blood alcohol less than 3 , salicylates less than 1.7 and acetaminophen less than 2". On psychiatric evaluation today patient is found in his bed, restrained in 2, he is on one-to- one, at the beginning of the evaluation he was oppositional and resistant at the beginning, was moving up and down in his bed and when he was asked about this behavior he stated that "I am trying to find myself because I feel that 3 different people and leaving insight of me". Patient is states that he has been having intrusive thoughts "thoughts that I cannot control, like if I were another person"about [place], [place] and [place]. He says that he knows people from those three counties have been following him and controlling his thoughts. Asked about if he has been using drugs, he says that he made a mistake by saying that he was using PCP when he came to the hospital, he meant that "I thought I was using PCP, but I never used to drugs before". During the evaluation patient is quite disorganized, but he can be redirected and he is able to answer appropriately some questions. Patient says that he was prescribed with clonazepam for his panic attacks, he denies history of psychosis and he says that he doesn't need to take any additional medication. At this moment he denies suicidal or homicidal ideation, he denies visual and auditory hallucinations. Active paranoia, delusions of being followed by people from [place] and [place] and not being himself, thought Control and disorganized speech and behavior are actively present throughout the evaluation. Collateral information from both parent, Aaron and Tania Davila, was obtained. They added that the patient has his first psychotic breakdown at the age of 16, he was admitted for about 2 months at that time. After the first hospitalization he had another breakdown and they he had a 2 weeks' hospitalization in [place], but after this hospitalization he did much better, he went to college and finish his career and made a master degree. About a year ago he found a job in [employer] and over there he decompensated and had a psychiatric hospitalization, after the psychiatric hospitalization he can back to the [place]. They don't have a lot of details about what happened in [place]. Patient has been Stable in the Last Year, he has been seeing a psychiatrist, Dr. 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 They do not think that his using any drugs, since he never did in the past and he is too afraid to become psychotic. They agree that the patient needs psychiatric hospitalization for this moment. I also tried to contact Dr. Madhav Javed in [place], , I was able to leave a message his rod finisher. He is aware that the patient is going to be hospitalized [facility]. Review of Systems Constitutional: DENIES: Diaphoretic episodes, Fatigue, Fever, Weight gain, Weight loss, Chills, Dizziness, Change in appetite, Night Sweats Endocrine: DENIES: Heat/cold intolerance, Polydipsia, Polyuria, Polyphagia Eyes: DENIES: Blurred vision, Diplopia, Eye inflammation, Eye pain, Vision loss , Photosensitivity, Double Vision Ears, nose, mouth, throat: DENIES: Tinnitus, Hearing loss, Vertigo, Nasal discharge, Oral lesions, Throat pain, Hoarseness, Ear Pain, Running Nose, Epistaxis, Sinus Pain, Toothache, Odynophagia Respiratory: DENIES: Apneas, Cough, Snoring, Wheezing, Hemoptysis, Sputum production, Shortness of breath Cardiovascular: DENIES: Chest pain, Palpitations, Syncope, Dyspnea on Exertion , PND, Lower Extremity Edema, Orthopnea, Claudication Gastrointestinal: DENIES: Abdominal pain, Black stools, Bloody stools, Constipation, Diarrhea, Nausea, Vomiting, Difficulty Swallowing, Anorexia Musculoskeletal: DENIES: Joint pain, Muscle aches, Stiffness, Joint Swelling, Back pain, Neck pain Integumentary: DENIES: Abnormal pigmentation, Nail changes, Pruritus, Rash Immunologic/allergic: DENIES: Eczema, Urticaria Psychiatric: COMPLAINS OF: Confusion, Agitation, Delusions, DENIES: Anxiety, Mood changes, Depression, Hallucinations, Suicidal Ideation, Homicidal Ideation Past Family Social History Coded Allergies: No Known Allergies (Unverified , 08/08/16) Reported Medications Paliperidone ER (Invega)1.5 Mg Tab1.5 Mg PO DAILY #30 TAB Ref 0 08/10/16 Clonazepam 1 Mg Tab0.25 Mg OTHER QID #60 TAB Ref 0 08/08/16 Discontinued Reported Medications Clarithromycin 500 Mg [id number] Mg PO BID Ref 0 07/19/16 Clonazepam Odt 0.25 Mg Tab0.25 Mg PO BID #60 TAB Ref 0 07/19/[address] 75 Mg Tabdr75 Mg PO BID #60 TAB Ref 0 07/19/16 Hyoscyamine 0.125 Mg Tab1-2 Tab PO Q4H PRN (GASTROINTESTINAL DISORDERS) Ref 0 07/19/16 Prednisone (21) 5 mg tab Dose Pack 5 Mg [id number] Mg PO DIRECTED #1 DSPK Ref 0 07/19/16 Current Medications Medications (Trade) Dose Ordered Sig/Angela Route Start Time Stop Time Status Last Admin (NS Flush) 2 ml UNSCH PRN FLUSH 08/09/16 19:45 (NS Flush) 2 ml BID FLUSH 08/09/16 21:00 (Tylenol) 650 mg Q4H PRN PO 08/09/16 19:45 (Zofran Inj) 4 mg Q6H PRN IVP 08/09/16 19:45 Naloxone HCl 0.4 mg 0.4 mg UNSCH PRN IV 08/09/16 19:45 (NS 1000 ml Inj) 1,000 ml @ 125 mls/hr Q8H IV 08/09/16 21:00 08/10/16 20:32 (Ativan Inj) 1 mg Q6H PRN IV PUSH 08/10/16 15:45 08/10/16 16:55 (Haldol Inj) 5 mg Q6H PRN IM 08/10/16 15:45 08/11/16 09:05 Patient Own Medication PT OWN MED: INVEGA ER (PALIPERIDO... 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 Patient's Strengths (min. 2) Good family support, good level of education Physical Exam Vital Signs Vital Signs Date Time Temp Pulse Resp B/P Pulse Ox O2 Delivery O2 Flow Rate FiO2 08/11/16 12:16 95.6 78 18 130/79 95 08/10/16 20:00 21 08/10/16 00:45 Room Air Mental Status Examination Appearance young old man, age appearing, good hygiene, [facility], he is irritable, superficially cooperative, guarded Speech: Unremarkable Orientation: x3 Memory: Unremarkable Thought Process: Loose Association, Other (disorganized) Thought Content: Paranoid, Obsessions Hallucination Type: None Attention and Concentration: Good Suicidal Ideation: No Previous Suicide Attempts: No Previous Homicide Attempts: No Insight: Fair Judgement: Poor Affect if Inappropriate: Flat Mood: Oppositional, Irritable Motor Activity: Normal gait Assessment & Plan Problem List: (1) Unspecified psychosis Assessment & Plan: The patient is a 25-year-old man, domiciled alone in [place], single, 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 Javed in [place], he does not have any significant medical history, who came to the ER due to altered mental status and not feeling himself. Patient stated when he came to the ER that he was using PCP, but later denied it. However, comprehensive toxicology has been ordered, including PCP. On psychiatric evaluation today patient is found guarded, irritable, with marked paranoia, delusions of being occupied by 3 different people and not being himself, being followed by people of [place], [place] and [place]. He also presents tangential and disorganized speech, is oddly related and has a very flat affect. His parents added patient hasn't been taking his antipsychotic, Invega, stating that he doesn't have a psychotic illness, but just anxiety. He denies suicidal and homicidal ideation, he denies visual and auditory hallucinations, even though he seems to be internally stimulated. He is on this evaluation, psychiatric history, collateral information from his parents, patient is far from baseline, he can potentially represent a danger to himself and others due to the level of psychotic decompensation and the fact that he is not taking his medication, he needs psychiatric hospitalization for stabilization. Will start Risperdal 1 mg bid, Clonazepam 0.5 mg bid, to help with psychosis and agitation. Please, transferred the patient to psychiatrist once medically state. Extensive psychoeducation, support, motivation provided to the patient's and the parents. Consult appreciated. ICD Code: F29 Assessment & Plan Estimated LOS: Yariel Arias MD Aug 11, 2016 14:49
[2016-08-11] MEDS ORDERED: risperiDONE 1 MG TAB PO SCH (15:00)
--- NOTE | 2016-08-12 07:52 | EKG ---
Date Performed: 08/11/2016 Time Performed: 10:35:37 PTAGE: 25 years EKG: Sinus rhythm WITH SINUS ARRHYTHMIA INCOMPLETE RIGHT BUNDLE BRANCH BLOCK BORDERLINE ECG Compared to the PREVIOUS TRACING sinus rate has slowed PREVIOUS TRACING :08/09/16 DOCTOR: Ahmet Oneil Interpretating Date/Time 08/12/2016 07:51:34
[2016-08-13 14:06] LABS: BATH SALTS (MDPV) UR NEG (NEG); ECSTASY (MDMA) UR NEG (NEG); HEROIN (6-ACETYLMORPHINE) UR NEG (NEG); K2 SPICE UR NEG (NEG); OBMETHADONE UR NEG (NEG); OXYCODONE (PERCODAN) NEG (NEG); PHENCYCLIDINE URINE NEG (NEG)
== END 2016-08-11 16:14 | disposition home or self-care (01) ==
LOC: NEPC 13:36 → NEDA 19:17 → NEPGCP 08-10 01:33
PROVIDERS: ADMIT Specialist; ATTEND Specialist
DX: F19.94 Other psychoactive substance use, unspecified with psychoactive substance-induced mood disorder (principal); Z78.1 Physical restraint status; G93.40 Encephalopathy, unspecified; F41.1 Generalized anxiety disorder; R79.89 Other specified abnormal findings of blood chemistry; F20.81 Schizophreniform disorder; F41.0 Panic disorder [episodic paroxysmal anxiety]; F22 Delusional disorders; R45.4 Irritability and anger; Z91.14 Patient's other noncompliance with medication regimen; R00.0 Tachycardia, unspecified; R06.82 Tachypnea, not elsewhere classified; I45.10 Unspecified right bundle-branch block
CPT/HCPCS: 80048; 80053; 80307; 82140; 82550; 82552; 85025; 93005; 96361; 96374; 99285; G0378; G0481; J1630; J2060; J7030

== ENCOUNTER 2016-08-11 14:15 | Inpatient (IN) | payer BC ==
[~2016-08-11] VITALS: Ht 175.3 cm; Wt 72.8 kg
[~2016-08-11 14:15] MED LIST changes: +INVE1.5T PO
[2016-08-11] MEDS ORDERED: ALUMINUM/MAGNESIUM/SIMETH 30 ML CUP PO PRN (17:30)
[2016-08-11] MEDS ORDERED: LORazepam 2 MG/ML VIAL IM PRN (17:30)
[2016-08-11] MEDS ORDERED: ACETAMINOPHEN 325 MG TAB PO PRN (17:30)
[2016-08-11] MEDS ORDERED: MAGNESIUM HYDROXIDE SUSP 30 ML CUP PO PRN (17:30)
[2016-08-11] MEDS: LORazepam 1 MG TAB PO PRN (20:55)
[2016-08-12 05:40] VITALS: BP 105/73; PULSE 76; RESP 18; TEMP 97.6; O2SAT 96
[2016-08-12 08:21] LABS: ANION GAP 6 MEQ/L (5-15); BICARBONATE 29.6 MEQ/L (21.0-32.0); BLOOD UREA NITROGEN 14 MG/DL (7-18); CHLORIDE 107 MEQ/L (98-107); GLOMERULAR FILTRATION RATE 85 ML/MIN (>89); HDL CHOLESTEROL 56.5 MG/DL (40.0-60.0); LDL CHOLESTEROL 105 MG/DL (0-99); POTASSIUM 3.8 MEQ/L (3.5-5.1); SODIUM (NA) 143 MEQ/L (136-145)
[2016-08-12] MEDS: NICOTINE 21 MG/24 HR PATCH T-DERMAL SCH (08:33)
[2016-08-12] MEDS: LORazepam 1 MG TAB PO PRN ×2 (10:11→20:04)
--- NOTE | 2016-08-12 12:18 | HHI.HP ---
Provisional Diagnosis Admission Date Aug 11, 2016 at 14:15 [place] I. Schizophrenia, paranoid type Certification of Person's Competence To Provide Express and Informed Consent I have personally examined Ivan Davila , a person being served at [facility] on, Aug 12, 2016 11:52. Express and informed consent means consent voluntarily given in writing, by a competent person, after sufficient explanation and disclosure of the subject matter involved to enable the person to make a knowing and willful decision without any element of force, fraud, deceit, duress, or other form of constraint or coercion. This person is 18 years of age or older, is not now known to be incompetent to consent to treatment with a guardian advocate, and does not have a health care surrogate or proxy currently making medical treatment decisions. I have found this person to be one of the following: [x] Competent to provide express and informed consent, as defined above, for voluntary admission to this facility and is competent to provide express and informed consent for treatment. He/she has the consistent capacity to make well reasoned, willful, and knowing decisions concerning his or her medical or mental health treatment. The person fully and consistently understands the purpose of the admission for examination/placement and is fully capable of personally exercising all rights assured under [place] Incompetent to provide express and informed consent to voluntary admission, and this is incompetent to provide express and informed consent to treatment. The person must be transferred to involuntary status and a petition for a guardian advocate filed with the Circuit Court. [] Refusing to provide express and informed consent to voluntary admission but is competent to provide express and informed consent for treatment. The person must be discharged or transferred to involuntary status. Form shall be completed within 24 hours of a person's arrival at the receiving facility and filed in the clinical record of each person: 1. Admitted on a voluntary basis 2. Permitted to provide express and informed consent to his/her own treatment 3. Allowed to transfer from involuntary to voluntary status 4. Prior to permitting a person to consent to his or her own treatment after having been previously found incompetent to consent to treatment. History of Present Illness Capacity: Has Capacity HPI This is a 25-year-old male was admitted over the weekend for altered mental status. It is noted that the patient was also seen on the and 12th of this month with similar complaints. At that time he indicated he was using illicit drugs. At this point in time he denies the use of illicit drugs and feels that his hospitalization and altered mental status are due to the fact that he stopped taking antibiotics for a sinus infection. The patient shows evidence of thought blocking and paranoia. He believes he is being persecuted at his job at [employer]. He did tell this physician he was diagnosed as schizophreniform at the age of 15. He has been taking Klonopin for anxiety but this appears to be related to psychosis and he is not on an antipsychotic medicine. He exhibits disorganized thinking with looseness of associations. He also admits to auditory hallucinations. He states his parents have driven into [place] from their home in [place]. This physician did call and speak with both patient's mother and father, after receiving patient's permission. He has a history of psychotic episodes with several hospitalizations. He has been noncompliant with medications in the past. This physician explore the diagnosis of schizophrenia with the patient's parents and they appeared to agree with that diagnosis. They do state that Ivan has become agitated and aggressive in the past and can be dangerous when he is psychotic. Review of Systems ROS Limitations: Clinical Condition Except as stated in HPI: all other systems reviewed are Neg Past Psych History Psychological trauma history None Violence risk - others (6 mos) Moderate while he is psychotic. Violence risk - self (6 mos) Moderate as he does explain that he has feelings of hurting himself. Substance Abuse History Drugs/Alcohol past 12 months Denied Past Family Social History Coded Allergies: No Known Allergies (Unverified , 08/08/16) Reported Medications Paliperidone ER (Invega)1.5 Mg Tab1.5 Mg PO DAILY #30 TAB Ref 0 08/10/16 Clonazepam 1 Mg Tab0.25 Mg OTHER QID #60 TAB Ref 0 08/08/16 Discontinued Reported Medications Clarithromycin 500 Mg Qeg726 Mg PO BID Ref 0 07/19/16 Clonazepam Odt 0.25 Mg Tab0.25 Mg PO BID #60 TAB Ref 0 07/19/[address] 75 Mg Tabdr75 Mg PO BID #60 TAB Ref 0 07/19/16 Hyoscyamine 0.125 Mg Tab1-2 Tab PO Q4H PRN (GASTROINTESTINAL DISORDERS) Ref 0 07/19/16 Prednisone (21) 5 mg tab Dose Pack 5 Mg Dspk5 Mg PO DIRECTED #1 DSPK Ref 0 07/19/16 Current Medications Medications (Trade) Dose Ordered Sig/Angela Route Start Time Stop Time Status Last Admin (Ativan) 1 mg Q6H PRN PO 08/11/16 17:30 08/11/16 20:55 (Ativan Inj) 1 mg Q6H PRN IM 08/11/16 17:30 (Tylenol) 650 mg Q4H PRN PO 08/11/16 17:30 (Milk Of Magnesia Liq) 30 ml DAILY PRN PO 08/11/16 17:30 (Mag-Al Plus Susp Liq) 30 ml Q6H PRN PO 08/11/16 17:30 (Habitrol 21 Mg Patch.24 Hr) 1 patch DAILY T-DERMAL 08/12/16 09:00 Miscellaneous Information 1 HS T-DERMAL 08/12/16 21:00 Family History Denied for psychotic illnesses. Social History Patient is apparently very bright according to his parents. He has graduated from college and received a masters degree in linguistics. He was working in [employer] but had a psychotic breakdown at that point. 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 He does not use alcohol and drugs despite his comments to the emergency room physician's in the last few days. Toxicology screen was negative. Patient's Strengths (min. 2) Intellectually gifted and verbal. Physical Exam GENERAL: SKIN: Warm and dry. HEAD: Normocephalic. EYES: No scleral icterus. No injection or drainage. NECK: Supple, trachea midline. No JVD or lymphadenopathy. CARDIOVASCULAR: Regular rate and rhythm without murmurs, gallops, or rubs. RESPIRATORY: Breath sounds equal bilaterally. No accessory muscle use. GASTROINTESTINAL: Abdomen soft, non-tender, nondistended. MUSCULOSKELETAL: No cyanosis, or edema. BACK: Nontender without obvious deformity. No CVA tenderness. Vital Signs Vital Signs Date Time Temp Pulse Resp B/P Pulse Ox O2 Delivery O2 Flow Rate FiO2 08/12/16 05:40 97.6 76 18 105/73 96 Mental Status Examination Speech: Hesitant Orientation: x3 Memory: Unremarkable Thought Process: Loose Association Thought Content: Paranoid Hallucination Type: Auditory Attention and Concentration: Abnormal Suicidal Ideation: No Previous Suicide Attempts: No Homicidal Ideation: No Previous Homicide Attempts: No Insight: Fair Judgement: Unrealistic Affect: Anxious Affect if Inappropriate: Blunt Mood: Anxious Motor Activity: Normal gait Assessment & Plan Problem List: (1) Schizophrenia, paranoid, chronic ICD Code: F20.0 Assessment & Plan Estimated LOS: days 7 days. Patient has been off antipsychotic medications and likely noncompliant with in Garcia, which she was prescribed last. 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 He is therefore decompensated and this is one of several decompensations he has had over the last 10 years. He did originally do well on Abilify and this physician proposed starting him back on Abilify with the option of using a long-acting injectable form of Abilify to help him with compliance. At this point he is unable to care for himself and poses a danger to himself as he has thoughts of harming himself and auditory hallucinations. Giacomo Silva MD Aug 12, 2016 12:18
[2016-08-12 16:19] LABS: HEMOGLOBIN A1b 0.8 %; HEMOGLOBIN Ao 86.4 %; HEMOGLOBIN F 0.8 %; HEMOGLOBIN LA1C 1.8 %; HEMOGLOBIN P3 3.4 %
[2016-08-12 18:39] VITALS: BP 124/65; PULSE 73; RESP 18; TEMP 97.6; O2SAT 96
[2016-08-12] MEDS: REMOVE OLD NICOTINE PATCH T-DERMAL SCH (21:00)
[2016-08-13] MEDS: LORazepam 1 MG TAB PO PRN ×3 (02:07→15:11)
[2016-08-13 05:47] VITALS: BP 108/64; PULSE 72; RESP 16; TEMP 97.9; O2SAT 96
[2016-08-13] MEDS: NICOTINE 21 MG/24 HR PATCH T-DERMAL SCH (08:22)
[2016-08-13 20:13] VITALS: BP 130/62; PULSE 85; RESP 16; TEMP 99.2; O2SAT 97
[2016-08-13] MEDS: clonazePAM 0.5 MG TAB PO SCH (20:55)
[2016-08-13] MEDS: REMOVE OLD NICOTINE PATCH T-DERMAL SCH (20:57)
[2016-08-13] MEDS ORDERED: PALIPERIDONE ER 1.5 MG TAB PO SCH (21:00)
[2016-08-13] MEDS ORDERED: ARIPiprazole 5 MG TAB PO SCH (21:00)
[2016-08-14] MEDS: LORazepam 1 MG TAB PO PRN (04:11)
[2016-08-14 06:20] VITALS: BP 129/76; PULSE 76; RESP 16; TEMP 97.2; O2SAT 95
[2016-08-14] MEDS: NICOTINE 21 MG/24 HR PATCH T-DERMAL SCH (08:24)
[2016-08-14] MEDS: clonazePAM 0.5 MG TAB PO SCH (08:24)
--- NOTE | 2016-08-14 12:05 | HHI.PYPN ---
Subjective Remarks This is the psychiatry progress note for August 13, 2016. Disposition met with the patient and both parents for approximately 45 minutes. The patient admits to auditory hallucinations and paranoid thinking. His parents however appear to minimize the degree of illness and psychosis that the patient exhibits. Patient has repeatedly described command auditory hallucinations which tell him to harm himself. This physician discussed multiple treatment options and the patient and his parents settled on in Garcia, which the patient has taken previously but not always compliantly. They also requested he be put back on clonazepam, which this physician agreed to. Review of Systems ROS Limitations: Clinical Condition Except as stated in HPI: all other systems reviewed are Neg Objective Alert: Yes [place]: Person, Place, Date, Situation Mood: Anxious Affect: Restricted Memory Intact: Immediate, Recent, Remote Hallucinations: Auditory Delusions: Yes Delusion Type: Paranoid Suicidal: Ideation Homicidal: Ideation Insight/Judgement Impaired Vitals/IOs Vital Signs Date Time Temp Pulse Resp B/P Pulse Ox O2 Delivery O2 Flow Rate FiO2 08/14/16 06:20 97.2 76 16 129/76 95 Assessment & Plan Problem List: (1) Schizophrenia, paranoid, chronic ICD Code: F20.0 Assessment & Plan Estimated LOS: days this physician as informed by the pharmacy that we do not have a supply of an Garcia extended release 1.5 mg. Therefore the patient will be tried on Abilify and he is accepting of that. His length of stay is going to be relatively short because both he and his parents want him discharged as soon as possible. This physician feels it is too soon to discuss discharge but does not wish to alienate the patient and family from receiving follow up care. Justification for Cont. Inpt. Psychotic with command auditory hallucinations. Patient remains at significant risk for harming himself. Giacomo Silva MD Aug 14, 2016 12:05
--- NOTE | 2016-08-14 12:20 | HHI.DS ---
Psychiatry Discharge Summary Inpatient Psychiatric care?: Yes Advance Directive: No Reason Not Provided: Pt has none Mental Health AdvanceDirective: No Health Care Proxy: No Admission Admission Date Aug 11, 2016 at 14:15 Admission Diagnosis: (1) Schizophrenia, paranoid, chronic ICD Code: F20.0 Brief History This is a 25-year-old male was admitted over the weekend for altered mental status. It is noted that the patient was also seen on the and of this month with similar complaints. At that time he indicated he was using illicit drugs. At this point in time he denies the use of illicit drugs and feels that his hospitalization and altered mental status are due to the fact that he stopped taking antibiotics for a sinus infection. The patient shows evidence of thought blocking and paranoia. He believes he is being persecuted at his job at [employer]. He did tell this physician he was diagnosed as schizophreniform at the age of 15. He has been taking Klonopin for anxiety but this appears to be related to psychosis and he is not on an antipsychotic medicine. He exhibits disorganized thinking with looseness of associations. He also admits to auditory hallucinations. He states his parents have driven into [place] from their home in [place]. This physician did call and speak with both patient's mother and father, after receiving patient's permission. He has a history of psychotic episodes with several hospitalizations. He has been noncompliant with medications in the past. This physician explore the diagnosis of schizophrenia with the patient's parents and they appeared to agree with that diagnosis. They do state that Ivan has become agitated and aggressive in the past and can be dangerous when he is psychotic. Tobacco Use In Past 30 Days: No Tobacco Past 30 Days Alcohol Use: Monthly or Less Hospital Course Patient was initially very anxious and experiencing command auditory hallucinations to harm himself when admitted. Over the course of this brief hospitalization he became significantly less anxious and more realistic in his thinking. This physician feels his discharge is somewhat early but the patient is denying any suicidal or homicidal ideation and can be maintained on an outpatient basis if he has the support of his parents as has been expressed by him and them. Results Blood Pressure 129 / 76 Vital Signs Date Time Temp Pulse Resp B/P Pulse Ox O2 Delivery O2 Flow Rate FiO2 08/14/16 06:20 97.2 76 16 129/76 95 Laboratory Tests Test 08/12/16 07:03 Estimat Glomerular Filtration 85 ML/MIN (>89) Rate Random Glucose 107 MG/DL (74-106) LDL Cholesterol 105 MG/DL (0-99) Laboratory Results Test 08/12/16 07:03 Hemoglobin A1c 5.2 % (4.3-6.0) Triglycerides Level 71 MG/DL (42-150) Cholesterol Level 176 MG/DL (120-200) LDL Cholesterol 105 MG/DL (0-99) HDL Cholesterol 56.5 MG/DL (40.0-60.0) Summary of Procedures None Pending results at discharge: No Medications # of Antipsychotic meds at D/C: 1 Appropriate >1 Antipsych meds?: 1 Approp Antipsych med options 1 - Minimum of three failed multiple trials of monotherapy. 2 - Documented plan to taper to monotherapy due to previous use of multiple meds OR cross-taper in progress at D/C. 3 - Documentation of augmentation of Clozapine. 4 - Justification other than those listed in allowable values 1-3, document here : Discharge Discharge Date: Aug 14, 2016 Discharge Diagnosis: (1) Schizophrenia, paranoid, chronic Diagnosis: Principal ICD Code: F20.0 Mental Status Exam at Disch At the time of discharge the patient continues to maintain some paranoid ideation, anxiety, and auditory hallucinations. He is denying any suicidal or homicidal ideation, plan or intent. He is claiming that he is safe to be discharged and follow up on an outpatient basis and that his parents want the same thing. This physician has asked the staff nurse to call his parents to confirm this. His cognition is intact and he is alert and oriented 3. He does verbally contract for safety. Pt Condition on Discharge: Stable Discharge Disposition: Discharge Home Discharge Instructions Diet Instructions: As Tolerated, No Restrictions Activities you can perform: Regular-No Restrictions Scheduled Appointment: Jose Fu Discharge Time > 30 minutes Discharge/Advance Care Plan Health Problems: (1) Schizophrenia, paranoid, chronic Goals to promote your health * To prevent worsening of your condition and complications * To maintain your health at the optimal level Directions to meet your goals Take your medications as prescribed Follow your dietary instruction Follow activity as directed Keep your appointments as scheduled Take your immunizations and boosters as scheduled If your symptoms worsen call your PCP, if no PCP go to Urgent Care Center or Emergency Room For 21/12 questions related to your inpatient stay or results of tests pending at discharge, please contact Dr. Giacomo Silva at Smoking is Dangerous to Your Health. Avoid second hand smoking Giacomo Silva MD Aug 14, 2016 12:20
[2016-08-14] MEDS ORDERED: CLON1 PO (12:23)
[2016-08-14] MEDS ORDERED: INVE1.5T PO (12:24)
== END 2016-08-14 14:20 | disposition home or self-care (01) | DRG 885 ==
LOC: H260 14:15
PROVIDERS: ADMIT Psychiatry & Neurology Psychiatry; ATTEND Psychiatry & Neurology Psychiatry
DX: F20.0 Paranoid schizophrenia (principal); Z91.14 Patient's other noncompliance with medication regimen
CPT/HCPCS: 80048; 80061; 83036

== ENCOUNTER 2016-08-30 18:02 | Emergency (ER) | payer BC ==
[~2016-08-30] VITALS: Ht 177.8 cm; Wt 75.0 kg
[~2016-08-30 18:02] MED LIST changes: +CLON1 PO
[2016-08-30 18:04] VITALS: BP 132/83; PULSE 114; RESP 17; TEMP 98.1; O2SAT 98
[2016-08-30 18:18] VITALS: BP 150/92; PULSE 108; RESP 16; O2SAT 98
[2016-08-30] MEDS ORDERED: CLON0.5T PO (18:18)
[2016-08-30] MEDS ORDERED: BENZTROPINE MESYLATE 1 MG TAB PO ONE (18:30)
[2016-08-30] MEDS ORDERED: BENZ1TAB PO (18:40)
--- NOTE | 2016-08-30 18:41 | PD ---
HPI Chief Complaint: Dizziness Time Seen by Provider: 18:15 Travel History International Travel<30 days: No Contact w/Intl Traveler<30days: No Traveled to known affect area: No History of Present Illness HPI Is a 25-year-old man with a history of schizophrenia presents to the emergency department complaining of abnormal eye twitching and abnormal muscle movements. He states he's been reading up on is worried he may be having seizures. He states he was on Depakote for short period time as a child for seizures. He is recently admitted for psychotic symptoms. He states he has "schizophreniform" and has had from review of the record multiple psychotic breaks in the past. He states that he's had dystonic reactions in the past. They tried to adjust his medications recently and he states he gets a dystonic reactions. States he' s worried that there may be getting worse and so he came back to the emergency department. History Past Medical History Narrative Medical History of psychosis Tetanus Vaccination: Unknown Social History Alcohol Use: No Tobacco Use: No Allergies-Medications (Allergen,Severity, Reaction): Coded Allergies: No Known Allergies (Unverified , 08/30/16) Reported Meds & Prescriptions Reported Meds & Active Scripts Active Reported Clonazepam 0.5 Mg Tab 0.5 Mg PO BID Invega (Paliperidone ER) 1.5 Mg Tab 1.5 Mg PO DAILY Review of Systems Except as stated in HPI: all other systems reviewed are Neg Physical Exam Narrative GENERAL: 25 year-old man, little bit anxious appearing. He does have some abnormal tic-like blinking. No seizure activity. SKIN: Focused skin assessment warm/dry. HEAD: Atraumatic. Normocephalic. EYES: Pupils equal and round. No scleral icterus. No injection or drainage. ENT: No nasal bleeding or discharge. Mucous membranes pink and moist. NECK: Trachea midline. No JVD. CARDIOVASCULAR: Regular rate and rhythm. No murmur appreciated. RESPIRATORY: No accessory muscle use. Clear to auscultation. Breath sounds equal bilaterally. GASTROINTESTINAL: Abdomen soft, non-tender, nondistended. Hepatic and splenic margins not palpable. MUSCULOSKELETAL: No obvious deformities. No clubbing. No cyanosis. No edema. NEUROLOGICAL: Awake and alert. No obvious cranial nerve deficits. Motor grossly within normal limits. Normal speech. PSYCHIATRIC: Little bit anxious appearing. Data Data Last Documented VS Vital Signs Date Time Temp Pulse Resp B/P Pulse Ox O2 Delivery O2 Flow Rate FiO2 08/30/16 18:18 108 16 150/92 98 08/30/16 18:14 Room Air 08/30/16 18:04 98.1 Orders Benztropine (Cogentin) (08/30/16 18:30) [facility] Medical Decision Making Medical Screen Exam Complete: Yes Emergency Medical Condition: Yes Differential Diagnosis Anxiety reaction, take disorder, seizures, dystonic reaction, other Narrative Course Medical decision making This 25-year-old male with apparent schizophrenia presents to the emergency department complaining of abnormal blinking and abnormal muscle movements. I don't really see any convincing for seizures or dystonic reactions. They appear almost tik-like and are infrequent and not rhythmic. Nonetheless, he's had a lot of dystonic reactions in the past. I think it be reasonable to try Cogentin to see if these abnormal movements or suppressed. He is follow-up with his psychiatrist. He would like follow-up with neurology. We'll give him follow-up with Dr. Quezada, the on-call neurologist. Diagnosis Primary Impression: Abnormal movements Referrals: Oleksandr Quezada MD 1 week Additional Instructions: Take Cogentin as prescribed. Follow-up with your psychiatrist the first available appointment. Follow-up with Dr. Quezada for further evaluation for possible neurologic causes of your abnormal movements. Return to the emergency department for any new or worsening symptoms. Med/Other Pt SpecificInfo: Prescription(s) given Scripts Benztropine 1 Mg Tab1 Mg PO BID #28 TAB Ref 0 Prov:Chris Rucker MD 08/30/16 Disposition: 01 DISCHARGE HOME Condition: Stable Chris Rucker MD Aug 30, 2016 18:40
== END 2016-08-30 18:54 | disposition home or self-care (01) ==
LOC: NEPC 18:02
DX: G25.9 Extrapyramidal and movement disorder, unspecified (principal)
CPT/HCPCS: 99283

== ENCOUNTER 2016-09-01 18:23 | Emergency (ER) | payer BC ==
[~2016-09-01] VITALS: Ht 177.8 cm; Wt 98.6 kg
[~2016-09-01 18:23] MED LIST changes: +BENZ1TAB PO; +CLON0.5T PO; -CLON1 PO; -CLON1TAB OTHER
[2016-09-01 18:34] VITALS: BP 149/78; PULSE 112; RESP 18; TEMP 100; O2SAT 98
[2016-09-01] MEDS ORDERED: SODIUM CHLOR 0.9% 1000 ML INJ 1,000 ML IV ONE ×2 (18:55→19:00)
--- NOTE | 2016-09-01 18:58 | PD ---
HPI Chief Complaint: Allergic/Adverse Reaction Time Seen by Provider: 18:31 Travel History International Travel<30 days: No Contact w/Intl Traveler<30days: No Traveled to known affect area: No History of Present Illness HPI The patient is 25. He has a history of schizophrenia and currently takes paliperidone, clonazepam and Cogentin. The Cogentin was started due to abnormal movements observe 2 days ago at the main ER. Last night the patient took all 3 medications. Throughout the course of the day today he thought classes in [place]ian as a second language at [employer]. During a phone call with his mother and with another: Remember it seemed as though he was not conversing in normal fashion evidently not answering questions. They have a family member confirms similar behavior. Last night while out at dinner with the family the patient dropped his head to the table and then fell to the floor in the restaurant. He was taken home at that point. At the time of interview the patient notes very is personal historical details including having smoking marijuana twice and a cigarette once. He reports having taken several tablets of Benadryl in the remote past. Mother notes that the patient is very sensitive to medications. PFSH Past Medical History Hx Anticoagulant Therapy: No Blood Disorders: No Anxiety: No Depression: No Heart Rhythm Problems: No Cancer: No Cardiovascular Problems: No Chemotherapy: No Chest Pain: No Congestive Heart Failure: No Cerebrovascular Accident: No Diabetes: No Diminished Hearing: No Endocrine: No Genitourinary: No Headaches: No Hypertension: No Immune Disorder: No Musculoskeletal: No Neurologic: Yes Psychiatric: Yes (has been inpatient for schizophreniform and panic) Reproductive: No Respiratory: No Schizophrenia: Yes Seizures: Yes (in the past not had any for years ) Influenza Vaccination: Yes ?: Not Past Surgical History Surgical History: No Previous Surgery Other Surgery: Yes (doesn't remember dates but dental surgery) Social History Alcohol Use: No Tobacco Use: No Substance Use: No Allergies-Medications (Allergen,Severity, Reaction): Coded Allergies: No Known Allergies (Unverified , 09/01/16) Reported Meds & Prescriptions Reported Meds & Active Scripts Active Benztropine (Benztropine Mesylate) 1 Mg Tab 1 Mg PO BID Reported Clonazepam 0.5 Mg Tab 0.5 Mg PO BID Invega (Paliperidone ER) 1.5 Mg Tab 1.5 Mg PO DAILY Review of Systems Except as stated in HPI: all other systems reviewed are Neg Physical Exam Narrative GENERAL: 25 yo F, pleasant, WNWD SKIN: Warm and dry. HEAD: Atraumatic. Normocephalic. EYES: Pupils equal and round. No scleral icterus. No injection or drainage. ENT: No nasal bleeding or discharge. Mucous membranes pink and moist. NECK: Trachea midline. No JVD. CARDIOVASCULAR: Regular rate and rhythm. RESPIRATORY: No accessory muscle use. Clear to auscultation. Breath sounds equal bilaterally. GASTROINTESTINAL: Abdomen soft, non-tender, nondistended. Hepatic and splenic margins not palpable. MUSCULOSKELETAL: Extremities without clubbing, cyanosis, or edema. No obvious deformities. NEUROLOGICAL: Occasional disorganized motor activity with the arms and legs. The patient rolls his eyes at times. No seizure activity is present. PSYCHIATRIC: No suicidal or homicidal ideation. Data Data Last Documented VS Vital Signs Date Time Temp Pulse Resp B/P Pulse Ox O2 Delivery O2 Flow Rate FiO2 09/01/16 18:34 100.0 112 18 149/78 98 Vital signs reviewed Orders Electrocardiogram (09/01/16 18:55) Complete Blood Count With Diff (09/01/16 18:55) Comprehensive Metabolic Panel (09/01/16 18:55) Iv Access Insert/Monitor (09/01/16 18:55) Ecg Monitoring (09/01/16 18:55) Oximetry (09/01/16 18:55) Lorazepam Inj (Ativan Inj) (09/01/16 19:00) Sodium Chloride 0.9% Flush (Ns Flush) (09/01/16 19:00) Sodium Chlor 0.9% 1000 Ml Inj (Ns 1000 M (09/01/16 18:55) Call Poison Control (09/01/16 18:55) Drug Screen, Random Urine (09/01/16 18:55) Salicylates (Aspirin) (09/01/16 18:55) Tylenol (Acetaminophen) (09/01/16 18:55) Sodium Chlor 0.9% 1000 Ml Inj (Ns 1000 M (09/01/16 19:00) Creatine Kinase (Cpk) (09/01/16 18:55) MDM Medical Decision Making Medical Screen Exam Complete: Yes Emergency Medical Condition: Yes Medical Record Reviewed: Yes Differential Diagnosis Malignant hyperthermia, rhabdomyolysis, medication interaction, medication side effect, dystonia, Akathesia, schizophrenia Narrative Course Initial orders have been placed including IV hydration, monitoring and altered mental status labs. Oncoming provider to follow-up results and reassess. Gabriel Nazario MD Sep 01, 2016 18:58
[2016-09-01] MEDS ORDERED: SODIUM CHLORIDE 0.9% FLUSH 10 ML FLUSH IVF PRN (19:00)
[2016-09-01] MEDS ORDERED: LORazepam 2 MG/ML VIAL IVP ONE (19:00)
[2016-09-01 19:30] LABS: AUTOMATED NEUTROPHIL # 5.8 TH/MM3 (1.8-7.7); BASOPHIL # 0.2 TH/MM3 (0-0.2); EOSINOPHIL % 0.5 % (0.0-4.0); HEMATOCRIT 43.4 % (39.0-51.0); HEMO FLAGS DIFF FINAL; LYMPHOCYTE # 1.7 TH/MM3 (1.0-4.8); MEAN CORPUSCULAR HEMOGLOBIN 31.6 PG (27.0-34.0); MEAN CORPUSCULAR HGB CONC 34.7 % (32.0-36.0); MONO % 6.9 % (0.0-8.0); NEUT % 69.6 % (16.0-70.0); PLATELET COUNT 222 TH/MM3 (150-450); RED BLOOD COUNT 4.76 MIL/MM3 (4.50-5.90); RED CELL DISTRIBUTION WIDTH 12.9 % (11.6-17.2); WHITE BLOOD COUNT 8.3 TH/MM3 (4.0-11.0)
[2016-09-01 19:37] LABS: CHLORIDE 107 MEQ/L (98-107); POTASSIUM 3.6 MEQ/L (3.5-5.1); SODIUM (NA) 144 MEQ/L (136-145)
[2016-09-01 19:42] LABS: ANION GAP 9 MEQ/L (5-15); BICARBONATE 28.1 MEQ/L (21.0-32.0)
[2016-09-01 19:43] LABS: BLOOD UREA NITROGEN 12 MG/DL (7-18)
[2016-09-01 19:45] LABS: ALT (GPT) 36 U/L (12-78)
[2016-09-01 19:46] LABS: AST (GOT) 22 U/L (15-37); GLOMERULAR FILTRATION RATE 80 ML/MIN (>89)
[2016-09-01 19:47] LABS: TOTAL BILIRUBIN ADULT 0.4 MG/DL (0.2-1.0)
[2016-09-01 19:48] LABS: ALKALINE PHOSPHATASE 52 U/L (45-117); CREATINE KINASE 149 U/L (39-308)
[2016-09-01 20:22] VITALS: BP 135/82; PULSE 93; O2SAT 98
[2016-09-01 20:42] LABS: ACETAMINOPHEN LESS THAN 2.0 MCG/ML (10.0-30.0)
[2016-09-01 20:46] LABS: AMPHETAMINE, URINE NEG (NEG); BARBITURATES, URINE NEG (NEG); COCAINE, URINE NEG (NEG)
--- NOTE | 2016-09-01 21:20 | PD ---
Data Data Last Documented VS Vital Signs Date Time Temp Pulse Resp B/P Pulse Ox O2 Delivery O2 Flow Rate FiO2 09/01/16 21:01 Room Air 09/01/16 20:22 93 135/82 98 09/01/16 18:34 100.0 18 Orders Electrocardiogram (09/01/16 18:55) Complete Blood Count With Diff (09/01/16 18:55) Comprehensive Metabolic Panel (09/01/16 18:55) Iv Access Insert/Monitor (09/01/16 18:55) Ecg Monitoring (09/01/16 18:55) Oximetry (09/01/16 18:55) Lorazepam Inj (Ativan Inj) (09/01/16 19:00) Sodium Chloride 0.9% Flush (Ns Flush) (09/01/16 19:00) Sodium Chlor 0.9% 1000 Ml Inj (Ns 1000 M (09/01/16 18:55) Call Poison Control (09/01/16 18:55) Drug Screen, Random Urine (09/01/16 18:55) Salicylates (Aspirin) (09/01/16 18:55) Tylenol (Acetaminophen) (09/01/16 18:55) Sodium Chlor 0.9% 1000 Ml Inj (Ns 1000 M (09/01/16 19:00) Creatine Kinase (Cpk) (09/01/16 18:55) Labs Laboratory Tests Test 09/01/16 09/01/16 19:17 20:33 White Blood Count 8.3 TH/MM3 Red Blood Count 4.76 MIL/MM3 Hemoglobin 15.0 GM/DL Hematocrit 43.4 % Mean Corpuscular Volume 91.0 FL Mean Corpuscular Hemoglobin 31.6 PG Mean Corpuscular Hemoglobin 34.7 % Concent Red Cell Distribution Width 12.9 % Platelet Count 222 TH/MM3 Mean Platelet Volume 8.7 FL Neutrophils (%) (Auto) 69.6 % Lymphocytes (%) (Auto) 21.0 % Monocytes (%) (Auto) 6.9 % Eosinophils (%) (Auto) 0.5 % Basophils (%) (Auto) 2.0 % Neutrophils # (Auto) 5.8 TH/MM3 Lymphocytes # (Auto) 1.7 TH/MM3 Monocytes # (Auto) 0.6 TH/MM3 Eosinophils # (Auto) 0.0 TH/MM3 Basophils # (Auto) 0.2 TH/MM3 CBC Comment DIFF FINAL Differential Comment Sodium Level 144 MEQ/L Potassium Level 3.6 MEQ/L Chloride Level 107 MEQ/L Carbon Dioxide Level 28.1 MEQ/L Anion Gap 9 MEQ/L Blood Urea Nitrogen 12 MG/DL Creatinine 1.10 MG/DL Estimat Glomerular Filtration 80 ML/MIN Rate Random Glucose 117 MG/DL Calcium Level 8.8 MG/DL Total Bilirubin 0.4 MG/DL Aspartate Amino Transf 22 U/L (AST/SGOT) Alanine Aminotransferase 36 U/L (ALT/SGPT) Alkaline Phosphatase 52 U/L Total Creatine Kinase 149 U/L Total Protein 7.4 GM/DL Albumin 3.9 GM/DL Salicylates Level LESS THAN 1.7 MG/DL Acetaminophen Level LESS THAN 2.0 MCG/ML Urine Opiates Screen NEG Urine Barbiturates Screen NEG Urine Amphetamines Screen NEG Urine Benzodiazepines Screen NEG Urine Cocaine Screen NEG Urine Cannabinoids Screen NEG MDM Supervised Visit with JUAN R: No Interpretation(s) Patient's EKG shows normal sinus rhythm normal axis and normal R-wave progression. No concerning ST segment changes. Intervals within normal limits. This normal EKG. Repeat EKG shows normal sinus rhythm with sinus arrhythmia. Normal axis normal R-wave progression of concerning ST T changes. This is a normal EKG. Narrative Course Patient care assumed from Dr. Nazario at 1900. Briefly this a patient with schizophreniform disorder who presented to days ago with possible dystonic medication reaction. At that time his medications were changed to include Cogentin by Dr. Chris Rucker. He is been at home taking these medicines and apparently the patient became fairly somnolent at home and mom decided to bring him in the emergency department and be seen. Poison control was consult by Dr. Nazario and recommended 4-6 hour observation period. Patient's mental status continues to improve while in the emergency department, Tylenol salicylate levels election levels within normal limits. EKGs were obtained by Dr. Nazario as well as a 4 hour time limit by me. There is no concerning abnormality on either EKG and there are not evolving. Initially nurses communicated to me that the patient was to be observed for 46 hours and he was discussed with hospitalist on-call for admission. When this was clarified between 4-6 hours he was observed for that time. Remained stable and would like to go home. His admission was canceled. Discussed with the patient Benadryl for symptomatically control, mom states that she has heard about [facility] act like to take her son there are no would recommend that they go first thing in the morning. At this time would recommend ceasing all psychotropic medicines for the time being and establish with a steady psychiatrist. Mom informs me that the patient has been traveling for work and is very intelligent. His steady psychiatrist is actually in [facility] seen multiple providers at [place] from time to time. Currently he does not meet involuntary hold criteria he is quite cooperative and pleasant and denies suicidal homicidal ideation or audiovisual hallucinations.. He does exhibit some tic-like movements. Mother and patient are agreeable to this course of action and he is stable for discharge. Mom is going to take him home and look after him for the night Diagnosis Primary Impression: Dystonic drug reaction Departure Forms: Tests/Procedures, Work Release Enter return to work date: Sep 03, 2016 Special Instructions: Please excuse on September 01 and September 02. Additional Instruction: Follow up with Jose Young tomorrow. Disposition: 01 DISCHARGE HOME Condition: Stable Jorge Ulloa MD Sep 01, 2016 21:20
[2016-09-01 21:26] VITALS: O2SAT 97
[2016-09-01 21:35] VITALS: BP_SYST 132; PULSE 75; O2SAT 100
--- NOTE | 2016-09-02 09:15 | EKG ---
Date Performed: 09/01/2016 Time Performed: 22:19:30 PTAGE: 25 years EKG: Sinus rhythm with PAC(s) Possible septal infarct - age undetermined Abnormal ECG PREVIOUS TRACING : 09/01/2016 19.04 DOCTOR: Chris Wasserman Interpretating Date/Time 09/02/2016 09:13:22
--- NOTE | 2016-09-02 09:50 | EKG ---
Date Performed: 09/01/2016 Time Performed: 19:04:10 PTAGE: 25 years EKG: Sinus rhythm Possible septal infarct - age undetermined Abnormal ECG PREVIOUS TRACING : 08/11/2016 10.35 DOCTOR: Chris Wasserman Interpretating Date/Time 09/02/2016 09:48:49
== END 2016-09-01 22:46 | disposition home or self-care (01) ==
LOC: PHED 18:23 → PHEDA 21:04 → UNDOADMOB 21:04 → PHED 22:46
DX: G24.09 Other drug induced dystonia (principal); T44.3X5A Adverse effect of other parasympatholytics [anticholinergics and antimuscarinics] and spasmolytics, initial encounter; F20.9 Schizophrenia, unspecified; Z79.899 Other long term (current) drug therapy
CPT/HCPCS: 80053; 80307; 82550; 85025; 93005; 96360; 99285; J7030